=== PATIENT | female | born 1940 | race Caucasian/White ===

== ENCOUNTER 2017-01-25 18:36 | Emergency (ER) | payer OTHER ==
[~2017-01-25] VITALS: Ht 167.6 cm; Wt 92.5 kg
[~2017-01-25 18:36] MED LIST: ALBU-136 INH; BENA20TA PO; CLIN300C2 PO; CLON0.1T42 PO; DILT360C36 PO; DOCU-299 PO; GLIP5TAB13 PO; LEVO750T2 PO; OXYC40TE66 PO; PANT40EC PO; PRED20TA5 PO; PRON NEB; QUET200T PO; SACC250C1 PO
[2017-01-25 18:37] VITALS: BP 142/63
[2017-01-25] MEDS ORDERED: NACL 0.9% 500 ML IV ONE (19:20)
[2017-01-25] MEDS ORDERED: HYDROmorphone 1 MG/ML AMP IVP ONE ×3 (19:20→21:55)
[2017-01-25] MEDS ORDERED: ONDANSETRON 4 MG/2 ML VIAL IVP ONE (19:20)
[2017-01-25 20:31] LABS: HEMATOCRIT 36.8 % (36-48); HEMOGLOBIN 11.8 g/dL (12.0-16.0); MEAN CORPUSCULAR HEMOGLOBIN 30 pg (27-31); MEAN CORPUSCULAR HGB CONC 32 g/dL (33-37); MEAN CORPUSCULAR VOLUME 93 fL (80-94); PLATELET COUNT (AUTO) 171 K/uL (140-450); RED BLOOD CELL COUNT(AUTO) 3.96 MIL/uL (4.20-5.40); RED CELL DISTRIBUTION WIDTH 13.7 % (11.6-13.7); WHITE BLOOD COUNT (AUTO) 8.1 K/uL (4.8-10.8)
[2017-01-25 20:44] LABS: ANION GAP 12.3 (8-16); CARBON DIOXIDE 31.6 mmol/L (21-32); CHLORIDE 104 mmol/L (98-107); CREATININE 2.1 mg/dL (0.6-1.3); GLUCOSE 162 mg/dL (74-106); POTASSIUM 3.9 mmol/L (3.5-5.1); SODIUM SERUM 144 mmol/L (136-145); UREA NITROGEN, BLOOD 22 mg/dL (7-18)
[2017-01-25 20:47] LABS: LYMPHOCYTES % (MANUAL) 26 % (20-46); MONOCYTES % (MANUAL) 9 % (5-12)
[2017-01-25 20:48] LABS: ALBUMIN 3.6 g/dL (3.4-5.0); ASPARTATE AMINOTRANSFERASE 29 U/L (15-37); TOTAL BILIRUBIN 0.3 mg/dL (0.0-1.0)
[2017-01-25] MEDS ORDERED: diphenhydrAMINE 50 MG/ML VIAL IVP ONE (21:55)
[2017-01-25 22:25] LABS: PROTHROMBIN TIME 10.5 secs (10.8-13.4)
[2017-01-25 22:27] LABS: APPEARANCE,URINE HAZY (CLEAR); BILIRUBIN,URINE NEGATIVE (NEGATIVE); BLOOD, URINE NEGATIVE (NEGATIVE); COLOR,URINE YELLOW (YELLOW); LEUKOCYTE ESTERASE ,URINE NEGATIVE (NEGATIVE); NITRITE, URINE NEGATIVE (NEGATIVE); PH,URINE 5.5 (5.0-9.0); UGLUCOSE NEGATIVE (NEGATIVE)
[2017-01-25 22:39] LABS: CALCIUM OXALATE CRYSTALS,UR 0-10 /HPF (None Seen); RBC,URINE 0-5 (RARE) /HPF (0-5); WBC,URINE 0-5 (RARE) /HPF (0-5)
[2017-01-25 23:50] VITALS: BP 135/90
== END 2017-01-25 23:50 | disposition home or self-care (01) ==
LOC: MED 18:36
DX: R10.9 Unspecified abdominal pain (principal); R11.10 Vomiting, unspecified; Z88.2 Allergy status to sulfonamides; J44.9 Chronic obstructive pulmonary disease, unspecified
CPT/HCPCS: 36415; 71010; 74176; 80053; 81001; 83605; 83880; 84484; 85025; 85610; 85730; 87040; 87086; 93005; 96361; 96374; 96375; 96376; 99285; J1170; J1200; J2405; Q0092

== ENCOUNTER 2017-03-19 00:40 | Inpatient (IN) | payer OTHER ==
[~2017-03-19] VITALS: Ht 167.6 cm; Wt 98.9 kg
[2017-03-19 00:40] VITALS: BP 191/96
--- NOTE | 2017-03-19 00:42 | NUR ---
Pt placed in bed 2 by EMS
--- NOTE | 2017-03-19 00:50 | NUR ---
76/F with biba from home with c/o cough, SOB congestion x2 days. Pt on home oxygen. Pt on 4L nasal canula, O2 sat 97% on 4L. AOX4, speaks in clear sentences. Denies N/V/D. Pt asking for pain shot upon arrival. Pt has hx chronic back pain and c/o lower back pain and headache at this time. VSS at this time.
--- NOTE | 2017-03-19 00:51 | NUR ---
Patient being evaluated by Dr. Sellers at bedside.
[2017-03-19] MEDS ORDERED: NACL 0.9% 1,000 ML IV ONE (01:00)
[2017-03-19] MEDS ORDERED: KETOROLAC 30 MG/ML VIAL IVP ONE (01:00)
--- NOTE | 2017-03-19 01:23 | NUR ---
X-Ray at bedside.
[2017-03-19 01:38] LABS: HEMATOCRIT 32.3 % (36-48); HEMOGLOBIN 10.2 g/dL (12.0-16.0); MEAN CORPUSCULAR HEMOGLOBIN 29 pg (27-31); MEAN CORPUSCULAR HGB CONC 32 g/dL (33-37); MEAN CORPUSCULAR VOLUME 90 fL (80-94); PLATELET COUNT (AUTO) 289 K/uL (140-450); RED BLOOD CELL COUNT(AUTO) 3.57 MIL/uL (4.20-5.40); RED CELL DISTRIBUTION WIDTH 13.6 % (11.6-13.7); WHITE BLOOD COUNT (AUTO) 6.6 K/uL (4.8-10.8)
[2017-03-19 01:49] LABS: EOSINOPHILS % (MANUAL) 4 % (0-4); LYMPHOCYTES % (MANUAL) 23 % (20-46); MONOCYTES % (MANUAL) 2 % (5-12)
[2017-03-19] MEDS ORDERED: ALBUTEROL SULFATE/IPRATROPIU 3 ML SOL IH ONE ×2 (01:50→02:30)
[2017-03-19 01:51] LABS: PROTHROMBIN TIME 10.2 secs (10.8-13.4)
--- NOTE | 2017-03-19 01:52 | NUR ---
RT at bedside for breathing treatment.
[2017-03-19 01:54] LABS: APPEARANCE,URINE SL CLOUDY (CLEAR); BILIRUBIN,URINE NEGATIVE (NEGATIVE); BLOOD, URINE 1+ (NEGATIVE); COLOR,URINE YELLOW (YELLOW); LEUKOCYTE ESTERASE ,URINE NEGATIVE (NEGATIVE); NITRITE, URINE NEGATIVE (NEGATIVE); UGLUCOSE NEGATIVE (NEGATIVE)
[2017-03-19 01:56] LABS: ANION GAP 9.9 (8-16); CARBON DIOXIDE 30.8 mmol/L (21-32); CHLORIDE 109 mmol/L (98-107); CREATININE 1.4 mg/dL (0.6-1.3); GLUCOSE 174 mg/dL (74-106); POTASSIUM 3.7 mmol/L (3.5-5.1); SODIUM SERUM 146 mmol/L (136-145); UREA NITROGEN, BLOOD 12 mg/dL (7-18)
[2017-03-19 02:00] LABS: ALBUMIN 3.1 g/dL (3.4-5.0); ASPARTATE AMINOTRANSFERASE 28 U/L (15-37); TOTAL BILIRUBIN 0.2 mg/dL (0.0-1.0)
[2017-03-19] MEDS ORDERED: MAG SULF 2000 MG/WATER PREMIX 50 ML IV ONE (02:00)
[2017-03-19] MEDS ORDERED: methylPREDNISolone SS 125 MG/2 ML VIAL IVP ONE (02:00)
[2017-03-19 02:03] LABS: RBC,URINE 3-10 (FEW) /HPF (0-5); WBC,URINE 0-5 (RARE) /HPF (0-5)
[2017-03-19] MEDS ORDERED: fentaNYL 0.05 MG/ML VIAL IVP ONE (02:30)
[2017-03-19] MEDS ORDERED: HYDROcodone/APAP 7.5/325 MG 1 TAB PO PRN (02:35)
[2017-03-19] MEDS ORDERED: ACETAMINOPHEN 325 MG TAB PO PRN (02:35)
[2017-03-19] MEDS ORDERED: ONDANSETRON 4 MG/2 ML VIAL IVP PRN (02:35)
[2017-03-19] MEDS ORDERED: DEXTROSE 50% 50 ML SYR IVP PRN (02:45)
--- NOTE | 2017-03-19 02:59 | NUR ---
Patient will be admitted to care of Dr. Ren. Admited to TELE. Will go to room 112-B. Belongings list completed. Report to Christina MARTINEZ.
[2017-03-19 03:02] LABS: CHOL/HDL RATIO 3.9 (1-4.5); FREE T4 (FREE THYROXINE) 0.68 ng/dL (0.76-1.46); MAGNESIUM 1.7 mg/dL (1.8-2.4); PHOSPHORUS 3.2 mg/dL (2.5-4.9); THYROID STIMULATING HORMONE 2.94 uIU/mL (0.34-3.74)
[2017-03-19 03:20] VITALS: BP 155/91
--- NOTE | 2017-03-19 03:20 | NUR ---
R ac 22 gauge dislodged and removed. New IV inserted to right wrist 24 gauge.
--- NOTE | 2017-03-19 03:25 | NUR ---
Pt transferred to Tele 112-B via [facility] accompanied by EMT Mini and JUAN Carey with cardiac monitoring. IV fluids transferred infusing to Tele.
[2017-03-19] MEDS ORDERED: HYDROmorphone 1 MG/ML AMP IVP SCH (03:30)
[2017-03-19] MEDS: QUEtiapine FUMARATE 100 MG TAB PO SCH ×3 (03:56→20:39)
[2017-03-19] MEDS ORDERED: LEVOFLOXACIN 750 MG/D5W PREMIX 150 ML IV SCH (04:00)
[2017-03-19] MEDS ORDERED: QUEtiapine FUMARATE 100 MG TAB ONE (04:01)
--- NOTE | 2017-03-19 04:20 | NUR ---
PT ARRIVED ON UNIT, VIA GURNEY, PT STABLE, NO DISTRESS NOTED, IV TO THE R AC 24 G INFUSING WELL, REPORTED HAVING PAIN OF 10/10, DR AC BY BEDSIDE, WILL MEDICATE WHEN MEDICATION ARE DUE, INITIAL ASSESSMENT DONE, ALL SAFETY PRECAUTION MET, CALL LIGHT WITHIN REACH, WILL CONTINUE TO MONITOR.
[2017-03-19] MEDS: cloNIDine 0.1 MG TAB PO SCH ×3 (04:32→14:54)
[2017-03-19] MEDS: oxyCODONE 40 MG TABER PO SCH ×3 (04:32→20:40)
--- NOTE | 2017-03-19 04:32 | NUR ---
DUE MEDICATION GIVEN, PT TOLERATED WELL, RESTING NO DISTRESS NOTED, CALL LIGHT WITHIN REACH, WILL CONTINUE TO MONITOR.
[2017-03-19] MEDS ORDERED: oxyCODONE 40 MG TABER PO SCH (05:00)
[2017-03-19] MEDS ORDERED: oxyCODONE 40 MG TABER PO PRN (05:00)
[2017-03-19] MEDS: ALBUTEROL SULFATE/IPRATROPIU 3 ML SOL IH SCH ×3 (06:40→19:15)
[2017-03-19] MEDS: BLOOD GLUCOSE MONITORING 1 DEV DEV FS SCH ×4 (06:46→20:54)
[2017-03-19] MEDS: INSULIN LISPRO SLIDING SCALE 100 UNITS/ML VIAL SUBQ PRN ×4 (06:50→21:50)
[2017-03-19] MEDS ORDERED: NITROGLYCERIN 0.4 MG TAB SL SCH (07:00)
--- NOTE | 2017-03-19 07:15 | NUR ---
RECEIVED PT REPORT FROM THE PHOTOGRAPHIC PROCESSOR. NO S/S OF DISTRESS NOTED, IV NOTED TO THE LEFT AC, 24 GAUGE, INFUSING WELL, REPORTED HAVING LOW BACK PAIN OF 8/10 WILL MEDICATE. FALL PRECAUTIONS MET, BED LOW, CALL LIGHT WITHIN REACH, WILL CONTINUE TO MONITOR.
--- NOTE | 2017-03-19 07:18 | NUR ---
ENDORSED PT TO DAY SHIFT NURSE, PT RESTING NO DISTRESS NOTED, STABLE.
--- NOTE | 2017-03-19 07:50 | NUR ---
PT DENIED ANY CHEST PAIN SO NITRO WAS NOT GIVEN. PT C/O LOW BACK PAIN AND REQUESTED IV PAIN MEDS. NOTIFIED TO , WILL PUT IN ORDERS.
[2017-03-19 08:00] VITALS: BP 124/67
--- NOTE | 2017-03-19 08:00 | NUR ---
PT IS ON 2L O2 VIA NC, NO SOB NOTED. WILL CONTINUE TO MONITOR.
[2017-03-19] MEDS: DOCUSATE SODIUM 100 MG GELCAP PO SCH ×2 (08:28→20:42)
[2017-03-19] MEDS: LACTOBACILLUS RHAMNOSUS GG 1 EACH CAP PO SCH (08:29)
[2017-03-19] MEDS: ECOTRIN 81 MG TABEC PO SCH (08:29)
[2017-03-19] MEDS: ATORVASTATIN 20 MG TAB PO SCH (08:29)
[2017-03-19] MEDS: PANTOPRAZOLE 40 MG TABEC PO SCH (08:29)
[2017-03-19] MEDS: MAGNESIUM OXIDE 400 MG TAB PO SCH (08:29)
[2017-03-19] MEDS: glipiZIDE 5 MG TAB PO SCH (08:30)
[2017-03-19] MEDS: BENAZEPRIL 20 MG TAB PO SCH (08:30)
--- NOTE | 2017-03-19 08:44 | NUR ---
PATIENT HAS BEEN SCREENED AND CATEGORIZED MODERATE NUTRITION RISK. PATIENT WILL BE SEEN WITHIN 3-5 DAYS OF ADMISSION. 03/21/17-03/23/[address]
[2017-03-19] MEDS ORDERED: DILTIAZEM 30 MG TAB PO SCH ×2 (09:00)
[2017-03-19] MEDS ORDERED: DOCUSATE SODIUM 100 MG GELCAP PO SCH (09:00)
[2017-03-19] MEDS ORDERED: QUEtiapine FUMARATE 100 MG TAB PO SCH (09:00)
[2017-03-19] MEDS: HYDROmorphone 1 MG/ML AMP IVP PRN ×4 (09:09→22:01)
[2017-03-19 09:30] LABS: BASOPHILS # (AUTO) 0.1 K/uL (0.00-0.22); BASOPHILS % (AUTO) 1.4 % (0.0-2.0); EOSINOPHILS # (AUTO) 0.1 K/uL (0-0.4); EOSINOPHILS % (AUTO) 1.1 % (0.0-4.0); HEMATOCRIT 30.9 % (36-48); LYMPHOCYTES # (AUTO) 0.4 K/uL (2.5-16.5); LYMPHOCYTES % (AUTO) 5.4 % (20.5-51.1); MEAN CORPUSCULAR HEMOGLOBIN 29 pg (27-31); MEAN CORPUSCULAR HGB CONC 32 g/dL (33-37); MEAN CORPUSCULAR VOLUME 91 fL (80-94); MONOCYTES # (AUTO) 0.1 K/uL (0.8-1.0); MONOCYTES % (AUTO) 1.8 % (1.7-9.3); NEUTROPHILS # (AUTO) 6.9 K/uL (1.8-7.7); NEUTROPHILS % (AUTO) 90.3 % (42.2-75.2); PLATELET COUNT (AUTO) 293 K/uL (140-450); RED BLOOD CELL COUNT(AUTO) 3.42 MIL/uL (4.20-5.40); RED CELL DISTRIBUTION WIDTH 13.6 % (11.6-13.7); WHITE BLOOD COUNT (AUTO) 7.6 K/uL (4.8-10.8)
[2017-03-19] MEDS ORDERED: methylPREDNISolone SS 80 MG in WATER STERILE 1 ML IV SCH (10:00)
[2017-03-19 10:08] LABS: ANION GAP 16.4 (8-16); CARBON DIOXIDE 26.9 mmol/L (21-32); CHLORIDE 106 mmol/L (98-107); CREATININE 1.7 mg/dL (0.6-1.3); GLUCOSE 301 mg/dL (74-106); POTASSIUM 3.3 mmol/L (3.5-5.1); SODIUM SERUM 146 mmol/L (136-145); UREA NITROGEN, BLOOD 12 mg/dL (7-18)
--- NOTE | 2017-03-19 10:10 | NUR ---
HELPED PT TO GET UP TO USE THE COMMODE, PT URINATED. URINE IS CLEAR, YELLOW, NO FOUL ORDER NOTED. WILL CONTINUE TO MONITOR.
[2017-03-19 10:14] LABS: PHOSPHORUS 2.7 mg/dL (2.5-4.9)
[2017-03-19] MEDS ORDERED: DILTIAZEM 180 MG PO SCH (10:30)
[2017-03-19] MEDS ORDERED: POTASSIUM CHLORIDE 10 MEQ TABER PO SCH (11:00)
[2017-03-19 12:00] VITALS: BP 136/81
--- NOTE | 2017-03-19 13:05 | NUR ---
PT OFF 02 TIMES 40 MINUTES SPO2 ON R/A.95 LEFT PT ON R/A ALSO DR KINCAID AWARE
[2017-03-19] MEDS: NACL 0.45% 1,000 ML IV SCH (14:34)
[2017-03-19] MEDS: methylPREDNISolone SS 125 MG/2 ML VIAL IVP SCH ×2 (14:54→20:39)
--- NOTE | 2017-03-19 16:30 | NUR ---
PT IV ON THE LEFT AC INFILTRATED, IV CATH REMOVED, TIP INTACT, PRESSURE APPLIED.
--- NOTE | 2017-03-19 17:00 | NUR ---
NEW IV STARTED ON THE RIGHT ARM. GAUGE 22, PT TOLERATED FAIR.
[2017-03-19 17:27] VITALS: BP 142/62
--- NOTE | 2017-03-19 18:42 | NUR ---
DR ORTIZ HAS SEEN THE PT. WILL PUT IN ORDERS.
--- NOTE | 2017-03-19 19:27 | NUR ---
ENDORSED PT TO BOOKING MANAGER. REPORT GIVEN AT BEDSIDE. PT IS ASLEEP. PT IS IN STABLE CONDITION AND NO S/S OF ACUTE DISTRESS.
--- NOTE | 2017-03-19 19:28 | NUR ---
RECEIVED BEDSIDE REPORT FORM DAY SHIFT NURSE HARVEY RN, PT RESTING , NO DISTRESS NOTED, NO SOB, ON NC 2LPM, IV TO R FA RUNNING 1/2 NS @80ML/HR, INFUSING WELL, PT STATED HAVING PAIN WHEN MOVING OF 12/11, REPOSITIONED PT, WILL MEDICATE WHEN MEDICATION IS DUE. INITIAL ASSESSMENT DONE, ALL SAFETY PRECAUTION MET. CALL LIGHT WITHIN REACH, WILL CONTINUE TO MONITOR.
[2017-03-19 20:00] VITALS: BP 130/55
--- NOTE | 2017-03-19 20:39 | NUR ---
DUE MEDICATION GIVEN, PT TOLERATED WELL, NO DISTRESS NOTED, CALL LIGHT WITHIN REACH, WILL CONTINUE TO MONITOR.
--- NOTE | 2017-03-19 22:01 | NUR ---
PT C/O OF PAIN IN THE BACK OF 8 PAIN MEDICATION GIVEN, PT TOLERATED WELL, NO DISTRESS NOTED, CALL LIGHT WITHIN REACH, WILL CONTINUE TO MONITOR.
[2017-03-20] VITALS: BP 136/50
--- NOTE | 2017-03-20 | NUR ---
AMBULATE PT TO BED SIDE COMMODE, PT TOLERATED WELL, NO DISTRESS NOTED, NO SOB, CALL LIGHT WITHIN REACH, WILL CONTINUE TO MONITOR.
[2017-03-20] MEDS: NACL 0.45% 1,000 ML IV SCH ×4 (00:25→20:24)
[2017-03-20] MEDS: HYDROmorphone 1 MG/ML AMP IVP PRN ×4 (03:05→20:12)
--- NOTE | 2017-03-20 03:05 | NUR ---
PT C/O PAIN 8/10 ON THE BACK RADIATING TO THE L LEG. PAIN MEDICATION GIVEN, PT RESTING, NO DISTRESS NOTED, CALL LIGHT WITHIN REACH, WILL CONTINUE TO MONITOR.
[2017-03-20 04:00] VITALS: BP 135/64
[2017-03-20] MEDS: oxyCODONE 40 MG TABER PO SCH ×3 (05:01→20:12)
[2017-03-20] MEDS: cloNIDine 0.1 MG TAB PO SCH ×3 (05:02→20:12)
[2017-03-20] MEDS: methylPREDNISolone SS 125 MG/2 ML VIAL IVP SCH (05:04)
--- NOTE | 2017-03-20 05:04 | NUR ---
DUE MEDICATION GIVEN, PT STABLE, NO DISTRESS NOTED, AMBULATE TO COMMODE, TOLERATED WELL, WILL CONTINUE TO MONITOR.
[2017-03-20] MEDS: BLOOD GLUCOSE MONITORING 1 DEV DEV FS SCH ×4 (06:11→20:40)
[2017-03-20] MEDS: INSULIN LISPRO SLIDING SCALE 100 UNITS/ML VIAL SUBQ PRN ×4 (06:13→20:39)
[2017-03-20 06:39] LABS: HEMOGLOBIN 9.9 g/dL (12.0-16.0); MEAN CORPUSCULAR HEMOGLOBIN 29 pg (27-31); MEAN CORPUSCULAR HGB CONC 33 g/dL (33-37); MEAN CORPUSCULAR VOLUME 90 fL (80-94); PLATELET COUNT (AUTO) 334 K/uL (140-450); RED BLOOD CELL COUNT(AUTO) 3.35 MIL/uL (4.20-5.40); RED CELL DISTRIBUTION WIDTH 14.1 % (11.6-13.7); WHITE BLOOD COUNT (AUTO) 17.7 K/uL (4.8-10.8)
[2017-03-20 07:01] LABS: ANION GAP 11.7 (8-16); CARBON DIOXIDE 28.9 mmol/L (21-32); CHLORIDE 104 mmol/L (98-107); CREATININE 1.5 mg/dL (0.6-1.3); GLUCOSE 237 mg/dL (74-106); POTASSIUM 4.6 mmol/L (3.5-5.1); SODIUM SERUM 140 mmol/L (136-145); UREA NITROGEN, BLOOD 21 mg/dL (7-18)
[2017-03-20 07:07] LABS: MAGNESIUM 2.3 mg/dL (1.8-2.4); PHOSPHORUS 2.7 mg/dL (2.5-4.9)
[2017-03-20] MEDS: ALBUTEROL SULFATE/IPRATROPIU 3 ML SOL IH SCH ×3 (07:10→19:54)
--- NOTE | 2017-03-20 07:19 | NUR ---
GAVE BEDSIDE REPORT TO DAY SHIFT NURSE HARVEY RN, ENDORSED PLAN OF CARE, PT STABLE NO DISTRESS NOTED, CALL LIGHT WITHIN REACH.
--- NOTE | 2017-03-20 07:20 | NUR ---
RECEIVED PT REPORT FROM THE AIRPORT SKILLED MAINTENANCE SUPERVISOR. AOX 4, NO S/S OF DISTRESS NOTED, IV NOTED TO THE RIGHT FA 22 GAUGE, INFUSING WELL. PT IS ON 2L O2. INITIAL ASSESSMENT DONE. FALL PRECAUTIONS MET, BED LOW, CALL LIGHT WITHIN REACH, WILL CONTINUE TO MONITOR.
[2017-03-20 08:00] VITALS: BP 149/56
[2017-03-20] MEDS: glipiZIDE 5 MG TAB PO SCH (08:27)
[2017-03-20] MEDS: DOCUSATE SODIUM 100 MG GELCAP PO SCH ×2 (08:27→20:13)
[2017-03-20] MEDS: LACTOBACILLUS RHAMNOSUS GG 1 EACH CAP PO SCH (08:27)
[2017-03-20] MEDS: ECOTRIN 81 MG TABEC PO SCH (08:27)
[2017-03-20] MEDS: MAGNESIUM OXIDE 400 MG TAB PO SCH (08:28)
[2017-03-20] MEDS: QUEtiapine FUMARATE 100 MG TAB PO SCH ×2 (08:28→21:42)
[2017-03-20] MEDS: FERROUS SULFATE 325 MG TABEC PO SCH (08:28)
[2017-03-20] MEDS: BENAZEPRIL 20 MG TAB PO SCH (08:28)
[2017-03-20] MEDS: ASCORBIC ACID 500 MG TAB PO SCH ×2 (08:29→09:00)
[2017-03-20] MEDS: ATORVASTATIN 20 MG TAB PO SCH (08:29)
[2017-03-20] MEDS: PANTOPRAZOLE 40 MG TABEC PO SCH (08:29)
[2017-03-20] MEDS: LEVOFLOXACIN 500 MG/D5W PREMIX 100 ML IV SCH (08:55)
[2017-03-20] MEDS ORDERED: DILTIAZEM 180 MG PO SCH (09:00)
[2017-03-20] MEDS ORDERED: METHOCARBAMOL 500 MG TAB PO SCH (09:25)
[2017-03-20] MEDS ORDERED: methylPREDNISolone SS 40 MG in WATER STERILE 1 ML IV SCH (10:00)
[2017-03-20 12:00] VITALS: BP 125/67
--- NOTE | 2017-03-20 13:00 | NUR ---
PT RECEIVED BREATHING TREATMENT. NO S/S ACUTE DISTRESS NOTED. WILL CONTINUE TO MONITOR.
[2017-03-20 13:30] LABS: LYMPHOCYTES % (MANUAL) 5 % (20-46); MONOCYTES % (MANUAL) 5 % (5-12)
[2017-03-20] MEDS: methylPREDNISolone SS 40 MG/ML VIAL IVP SCH ×2 (13:32→20:13)
--- NOTE | 2017-03-20 15:15 | NUR ---
SPOKE TO PATIENT AT BEDSIDE REGARDING DISCHARGE PLAN. PER PATIENT SHE LIVES ALONE BUT HER CHILDREN STAY THE NIGHT AND HER DAUGHTER IS HER CAREGIVER. STATES SHE HAS A SCOOTER ,FWW AND HAS OXYGEN AT HOME .REFUSING SNF BUT OK WITH HOME HEALTH IF NEEDED. REQUESTING 3-1 COMMODE AND A SHOWER CHAIR.
--- NOTE | 2017-03-20 15:30 | NUR ---
PT RECEIVED SPONGE BATH. PT TOLERATED WELL.
[2017-03-20 16:00] VITALS: BP 139/76
--- NOTE | 2017-03-20 19:20 | NUR ---
ENDORSED PT TO MARSHMALLOW MACHINE WORKER. REPORT GIVEN AT BEDSIDE. PT IS ASLEEP. PT IS IN STABLE CONDITION AND NO S/S OF ACUTE DISTRESS.
--- NOTE | 2017-03-20 19:25 | NUR ---
RECEIVED PT AWAKE, ANXIOUS, REQUESTING FOR BREATHING TX, RT PAGED BY EMILY GLASS RT SANDEEP AT ICU AT THIS TIME, WILL COME IN WHEN SHE'S DONE THERE, PT MADE AWARE, KEEP HOB ELEVATED FOR COMFORT, O2 AT 2L/NC, VITAL SIGNS TAKEN, BP SLIGHTLY ELEVATED, DENIES CHEST PAIN, PLAN OF CARE DISCUSSED, SAFETY MEASURES IN PLACE, CALL LIGHT WITHIN REACH.
[2017-03-20 20:00] VITALS: BP 151/82
--- NOTE | 2017-03-20 20:15 | NUR ---
BLOOD SUGAR CHECKED WITH 288 RESULT, COVERAGE GIVEN, SNACK PROVIDED, DUE MEDS GIVEN, MEDICATED PRN FOR PAIN WITH DILAUDID IVP, ALL NEEDS ATTENDED.
--- NOTE | 2017-03-20 22:40 | NUR ---
ROUNDED ON PT, SEEN SLEEPING, NO SIGNS OF DISTRESS, MONITORED CLOSELY.
[2017-03-21] VITALS: BP 154/58
[2017-03-21] MEDS: HYDROmorphone 1 MG/ML AMP IVP PRN ×6 (00:12→23:58)
--- NOTE | 2017-03-21 00:15 | NUR ---
PT ABLE TO USE BEDSIDE COMMODE INDEPENDENTLY, VOIDED FREELY, PT COMPLAINING OF BACK PAIN, VITAL SIGNS TAKEN, BP SLIGHTLY ELEVATED, DENIES CHEST PAIN AND NO SOB NOTED, MEDICATED PRN FOR BACK PAIN WITH DILAUDID IVP, CONTINUE TO MONITOR CLOSELY.
[2017-03-21] MEDS: NACL 0.45% 1,000 ML IV SCH ×2 (01:25→15:49)
--- NOTE | 2017-03-21 03:07 | NUR ---
PT ASSISTED TO BEDSIDE COMMODE, VOIDED FREELY WITH 400ML YELLOW URINE, ASSISTED BACK TO BED, WITH SOB ON EXERTION, CONTINUE ON O2 AT 2L/NC, PUT ON SEMI-FOWLERS POSITION, APPEARS COMFORTABLE, PT WENT BACK TO SLEEP, MONITORED CLOSELY.
[2017-03-21] MEDS: ALBUTEROL SULFATE/IPRATROPIU 3 ML SOL IH SCH ×3 (03:44→19:54)
[2017-03-21 04:00] VITALS: BP 145/72
[2017-03-21] MEDS: oxyCODONE 40 MG TABER PO SCH ×3 (04:46→20:01)
[2017-03-21] MEDS: cloNIDine 0.1 MG TAB PO SCH ×3 (04:46→20:02)
[2017-03-21] MEDS: methylPREDNISolone SS 40 MG/ML VIAL IVP SCH (04:47)
[2017-03-21] MEDS: INSULIN LISPRO SLIDING SCALE 100 UNITS/ML VIAL SUBQ PRN ×4 (06:09→20:25)
--- NOTE | 2017-03-21 06:10 | NUR ---
AM LABS DRAWN, BLOOD SUGAR CHECKED WITH 306 RESULT, COVERAGE GIVEN.
[2017-03-21] MEDS: CLINDAMYCIN 600 MG in DEXTROSE 5% 50 ML IV SCH ×3 (06:35→20:03)
[2017-03-21] MEDS: BLOOD GLUCOSE MONITORING 1 DEV DEV FS SCH ×4 (06:36→21:10)
--- NOTE | 2017-03-21 06:40 | NUR ---
ASSISTED TO BEDSIDE COMMODE, VOIDED FREELY, SLIGHT SOB WITH WHEEZING ON EXERTION, HOB ELEVATED, FEEL BETTER AFTER SEVERAL MINUTES, ASSISTED TO REPOSITIONED TO THE LEFT SIDE, MONITORED CLOSELY.
--- NOTE | 2017-03-21 07:16 | NUR ---
PT SLEEPING, NO SIGNS OF DISTRESS, REPORT GIVEN TO JUAN GOMEZ FOR CONTINUITY OF CARE.
--- NOTE | 2017-03-21 07:17 | NUR ---
REPORT RECEIVED FROM CYLINDER DYER NURSE. PATIENT IN STABLE CONDITION. NO DISTRESS NOTED. RESPIRATIONS EVEN, UNLABORED, ON O2 2L/MIN VIA NC. LUNGS ARE CLEAR ON ALL LOBES. DIMINISHED BREATH SOUNDS. REPORTS DYSPNEA UPON EXERTION. PAIN WITHIN TOLERABLE AT THIS TIME. AAOX4, CALM, COOPERATIVE, ABLE TO AMBULATE WITH ASSIST TO BEDSIDE COMMODE. SKIN COLOR APPROPRIATE TO ETHNICITY, WARM TO TOUCH. SKIN INTACT, HAS SCABS THROUGHOUT BODY, NO OPEN WOUND. ABDOMEN IS SOFT, NON-TENDER. REVIEWED PLAN OF CARE WITH PATIENT. PATIENT VERBALIZED UNDERSTANDING. SAFETY MEASURES IN PLACE, CALL LIGHT WITHIN REACH, FALL PREVENTIONS IN PLACE, BEDSIDE COMMODE NEAR BEDSIDE. WILL CONTINUE TO MONITOR.
[2017-03-21 07:31] LABS: HEMATOCRIT 29.3 % (36-48); HEMOGLOBIN 9.4 g/dL (12.0-16.0); MEAN CORPUSCULAR HEMOGLOBIN 29 pg (27-31); MEAN CORPUSCULAR HGB CONC 32 g/dL (33-37); MEAN CORPUSCULAR VOLUME 90 fL (80-94); PLATELET COUNT (AUTO) 339 K/uL (140-450); RED BLOOD CELL COUNT(AUTO) 3.26 MIL/uL (4.20-5.40); RED CELL DISTRIBUTION WIDTH 14.4 % (11.6-13.7); WHITE BLOOD COUNT (AUTO) 13.7 K/uL (4.8-10.8)
[2017-03-21 08:00] VITALS: BP 155/70
[2017-03-21 08:03] LABS: ANION GAP 12.5 (8-16); CARBON DIOXIDE 26.8 mmol/L (21-32); CHLORIDE 105 mmol/L (98-107); CREATININE 1.5 mg/dL (0.6-1.3); GLUCOSE 287 mg/dL (74-106); POTASSIUM 4.3 mmol/L (3.5-5.1); SODIUM SERUM 140 mmol/L (136-145); UREA NITROGEN, BLOOD 32 mg/dL (7-18)
[2017-03-21 08:06] LABS: LYMPHOCYTES % (MANUAL) 4 % (20-46); MONOCYTES % (MANUAL) 2 % (5-12)
[2017-03-21] MEDS: ALBUTEROL SULFATE/IPRATROPIU 3 ML SOL IH PRN (08:12)
[2017-03-21 08:13] LABS: MAGNESIUM 2.3 mg/dL (1.8-2.4); PHOSPHORUS 3.4 mg/dL (2.5-4.9)
[2017-03-21] MEDS: DOCUSATE SODIUM 100 MG GELCAP PO SCH ×2 (08:30→20:01)
[2017-03-21] MEDS: glipiZIDE 5 MG TAB PO SCH (08:30)
[2017-03-21] MEDS: FERROUS SULFATE 325 MG TABEC PO SCH (08:31)
[2017-03-21] MEDS: BENAZEPRIL 20 MG TAB PO SCH (08:31)
[2017-03-21] MEDS: ECOTRIN 81 MG TABEC PO SCH (08:31)
[2017-03-21] MEDS: LACTOBACILLUS RHAMNOSUS GG 1 EACH CAP PO SCH (08:32)
[2017-03-21] MEDS: MAGNESIUM OXIDE 400 MG TAB PO SCH (08:33)
[2017-03-21] MEDS: QUEtiapine FUMARATE 100 MG TAB PO SCH ×2 (08:33→20:20)
[2017-03-21] MEDS: ATORVASTATIN 20 MG TAB PO SCH (08:33)
[2017-03-21] MEDS: PANTOPRAZOLE 40 MG TABEC PO SCH (08:33)
[2017-03-21] MEDS: LEVOFLOXACIN 500 MG/D5W PREMIX 100 ML IV SCH (08:34)
[2017-03-21] MEDS: ASCORBIC ACID 500 MG TAB PO SCH (08:35)
--- NOTE | 2017-03-21 08:40 | NUR ---
PATIENT SITTING AT BEDSIDE. NO DISTRESS NOTED. COMPLAINTS OF PAIN, WILL MEDICATE WITH DILAUDID. RESPIRATIONS EVEN, UNLABORED ON O2 2L/MIN VIA NC. MEDICATIONS DUE GIVEN. ASSISTED PATIENT IN REPOSITIONING IN BED. SAFETY MEASURES IN PLACE, CALL LIGHT WITHIN REACH, BEDSIDE COMMODE NEAR BED. WILL CONTINUE TO MONITOR.
[2017-03-21] MEDS ORDERED: DILTIAZEM 120 MG CAPER PO SCH (10:20)
--- NOTE | 2017-03-21 11:22 | NUR ---
PATIENT SITTING IN BED COMFORTABLY. NO DISTRESS NOTED. PAIN WITHIN TOLERABLE AT THIS TIME. MEDICATIONS DUE GIVEN. IVF BAG REPLACED PER ORDERS. CONDITION UNCHANGED. SAFETY MEASURES IN PLACE, CALL LIGHT WITHIN REACH. WILL CONTINUE TO MONITOR.
[2017-03-21 12:00] VITALS: BP 159/73
--- NOTE | 2017-03-21 13:15 | NUR ---
PATIENT SITTING IN BED WITH FAMILY MEMBERS AT BEDSIDE. NO DISTRESS NOTED. CONDITION UNCHANGED. PAIN WITHIN TOLERABLE AT THIS TIME. MEDICATIONS DUE GIVEN. PLAN OF CARE REVIEWED WITH PATIENT'S FAMILY MEMBER PER PATIENT ALLOWED. HELPED PATIENT REPOSITION IN BED TO A MORE COMFORTABLE POSITION. CONTINUES TO HAVE DYSPNEA UPON EXERTION. SAFETY MEASURES IN PLACE, CALL LIGHT WITHIN REACH. WILL CONTINUE TO MONITOR.
[2017-03-21 16:00] VITALS: BP 144/96
--- NOTE | 2017-03-21 16:30 | NUR ---
PT'S DAUGHTER ANI CALLED AND STATED THAT PT WAS USING [facility] BEFORE. DR. ESPARZA NOTIFIED.
--- NOTE | 2017-03-21 18:10 | NUR ---
PATIENT SITTING IN BED WITH DINNER TRAY IN FRONT. NO DISTRESS NOTED. CONDITION UNCHANGED. PAIN WITHIN TOLERABLE AT THIS TIME. ASSISTED PATIENT TO REPOSITION IN BED PATIENT IS READY TO GO TO SLEEP. SAFETY MEASURES IN PLACE CALL LIGHT WITHIN REACH. WILL CONTINUE TO MONITOR.
--- NOTE | 2017-03-21 19:20 | NUR ---
GAVE REPORT TO ELECTRIC MULE OPERATOR NURSE FOR CONTINUITY OF CARE. PATIENT IN STABLE CONDITION.
--- NOTE | 2017-03-21 19:22 | NUR ---
RECEIVED PT AWAKE, AAOX4, ON SEMI-FOWLERS POSITION, NO SIGNS OF RESPIRATORY DISTRESS, VITAL SIGNS STABLE, ON O2 AT 2L/NC, IVF INFUSING WELL, PT ASKING FOR HER NEXT PAIN MEDICATION, MADE AWARE OF NEXT DUE TIME, PLAN OF CARE DISCUSS, SAFETY MEASURES IN PLACE, CALL LIGHT WITHIN REACH.
--- NOTE | 2017-03-21 19:50 | NUR ---
PT ASSISTED TO BEDSIDE COMMODE, VOIDED FREELY, SOB WITH WHEEZING ON EXERTION, PUT HOB ON HIGH FOWLERS POSITION, PAGED RT FOR BREATHING TX, MAINTAIN ON O2 AT 2L/NC, MONITORED CLOSELY.
[2017-03-21 20:00] VITALS: BP 125/58
--- NOTE | 2017-03-21 20:15 | NUR ---
BLOOD SUGAR CHECKED WITH 184 RESULT, COVERAGE GIVEN, SNACK PROVIDED, DUE MEDS GIVEN, MEDICATED PRN FOR PAIN, ASSIST IN REPOSITIONING FOR COMFORT, MONITORED CLOSELY.
--- NOTE | 2017-03-21 21:30 | NUR ---
REPORT GIVEN TO NUBIA MARTINEZ FOR CONTINUITY OF CARE.
[2017-03-22 00:17] VITALS: BP 134/81
[2017-03-22] MEDS: ALBUTEROL SULFATE/IPRATROPIU 3 ML SOL IH PRN (00:35)
[2017-03-22] MEDS: NACL 0.45% 1,000 ML IV SCH ×2 (02:25→14:55)
[2017-03-22 04:00] VITALS: BP 132/77
[2017-03-22] MEDS: HYDROmorphone 1 MG/ML AMP IVP PRN ×3 (05:38→14:59)
[2017-03-22] MEDS: oxyCODONE 40 MG TABER PO SCH ×3 (05:39→20:50)
[2017-03-22] MEDS: cloNIDine 0.1 MG TAB PO SCH ×3 (05:39→21:06)
[2017-03-22] MEDS: CLINDAMYCIN 600 MG in DEXTROSE 5% 50 ML IV SCH ×3 (05:40→20:52)
[2017-03-22] MEDS: ALBUTEROL SULFATE/IPRATROPIU 3 ML SOL IH SCH ×3 (07:00→19:52)
--- NOTE | 2017-03-22 07:20 | NUR ---
RECEIVED REPORT FROM CEMENT CRUSHER OPERATOR RN. PATIENT IS AAOX3, ON NASAL CANNULA AT 2LPM. BILATERAL WHEEZING HEARD UPON AUSCULTATION, NO SIGNS AND SYMPTOMS OF ACUTE RESPIRATORY DISTRESS NOTED AT THIS TIME. PATIENT HAS NORMAL SALINE INFUSING AT 80ML/HR TO THE RIGHT THUMB 24G. SITE IS CLEAN, DRY, PATENT AND INTACT. DISCUSSED PLAN OF CARE WITH PATIENT, SHE VERBALIZED UNDERSTANDING. BED IN LOWEST POSITION, CALL LIGHT PLACED WITHIN REACH, SIDERAILS UP X2. WILL CONTINUE TO MONITOR.
[2017-03-22] MEDS: INSULIN LISPRO SLIDING SCALE 100 UNITS/ML VIAL SUBQ PRN ×2 (07:26→11:45)
[2017-03-22] MEDS: BLOOD GLUCOSE MONITORING 1 DEV DEV FS SCH ×4 (07:26→20:48)
[2017-03-22 08:00] VITALS: BP 129/78
[2017-03-22 08:01] LABS: HEMATOCRIT 30.5 % (36-48); HEMOGLOBIN 9.9 g/dL (12.0-16.0); MEAN CORPUSCULAR HEMOGLOBIN 29 pg (27-31); MEAN CORPUSCULAR HGB CONC 32 g/dL (33-37); MEAN CORPUSCULAR VOLUME 90 fL (80-94); PLATELET COUNT (AUTO) 214 K/uL (140-450); RED CELL DISTRIBUTION WIDTH 14.6 % (11.6-13.7); WHITE BLOOD COUNT (AUTO) 13.2 K/uL (4.8-10.8)
[2017-03-22 08:11] LABS: ANION GAP 14.4 (8-16); CARBON DIOXIDE 24.7 mmol/L (21-32); CHLORIDE 105 mmol/L (98-107); CREATININE 1.3 mg/dL (0.6-1.3); GLUCOSE 166 mg/dL (74-106); POTASSIUM 4.1 mmol/L (3.5-5.1); SODIUM SERUM 140 mmol/L (136-145); UREA NITROGEN, BLOOD 32 mg/dL (7-18)
[2017-03-22 08:22] LABS: LYMPHOCYTES % (MANUAL) 15 % (20-46); MONOCYTES % (MANUAL) 4 % (5-12)
[2017-03-22] MEDS: glipiZIDE 5 MG TAB PO SCH (09:41)
[2017-03-22] MEDS: FERROUS SULFATE 325 MG TABEC PO SCH (09:41)
[2017-03-22] MEDS: DOCUSATE SODIUM 100 MG GELCAP PO SCH ×2 (10:27→20:49)
[2017-03-22] MEDS: MAGNESIUM OXIDE 400 MG TAB PO SCH (10:28)
[2017-03-22] MEDS: BENAZEPRIL 20 MG TAB PO SCH (10:28)
[2017-03-22] MEDS: ATORVASTATIN 20 MG TAB PO SCH (10:29)
[2017-03-22] MEDS: QUEtiapine FUMARATE 100 MG TAB PO SCH ×2 (10:29→20:52)
[2017-03-22] MEDS: ASCORBIC ACID 500 MG TAB PO SCH (10:29)
[2017-03-22] MEDS: DILTIAZEM 120 MG CAPER PO SCH (10:29)
[2017-03-22] MEDS: LEVOFLOXACIN 500 MG/D5W PREMIX 100 ML IV SCH (10:30)
[2017-03-22] MEDS: PANTOPRAZOLE 40 MG TABEC PO SCH (10:30)
[2017-03-22] MEDS: ECOTRIN 81 MG TABEC PO SCH (10:30)
[2017-03-22] MEDS: LACTOBACILLUS RHAMNOSUS GG 1 EACH CAP PO SCH (10:30)
[2017-03-22 12:00] VITALS: BP 148/59
[2017-03-22 16:00] VITALS: BP 114/62
--- NOTE | 2017-03-22 19:20 | NUR ---
RECEIVED REPORT FROM AM NURSE. PATIENT IS AAOX4, ON O2 2L VIA NC. PT WAS ASSISTED TO BEDSIDE COMMODE, AND WHEN GETTING BACK IN BED SHE BEGAN TO COMPLAIN OF DIFFICULTY BREATHING, RESPIRATORY THERAPIST WAS CALLED IMMEDIATELY TO COME ASSESS PT AND GIVE BREATHING TREATMENT. SKIN COLOR IS APPROPRIATE TO ETHNICITY, WITH SCABS TO BUE/RLE. SKIN TEMP WARM TO TOUCH. IV ACCESS IS INTACT TO THE RIGHT THUMB, PATENT, AND ASYMPTOMATIC. PLAN OF CARE DISCUSSED, PT VERBALIZED UNDERSTANDING. BED IN LOW POSITION, BILATERAL HALF SIDE RAILS UP, CALL LIGHT WITHIN REACH, WILL CONTINUE TO MONITOR.
[2017-03-22 20:00] VITALS: BP 105/52
[2017-03-22] MEDS ORDERED: CLINDAMYCIN 600 MG/4 ML VIAL ONE (20:46)
[2017-03-23] VITALS: BP 129/62
[2017-03-23] MEDS: NACL 0.45% 1,000 ML IV SCH ×2 (00:23→15:55)
--- NOTE | 2017-03-23 02:23 | NUR ---
PT IS SLEEPING, AROUSABLE TO VOICE. NO SIGNS OF ACUTE DISTRESS NOTED, RESPIRATIONS EVEN AND UNLABORED. ON O2 2L VIA NC. BED IN LOW POSITION, BILATERAL HALF SIDE RAILS UP, CALL LIGHT WITHIN REACH, WILL CONTINUE TO MONITOR.
[2017-03-23 04:00] VITALS: BP 137/70
[2017-03-23] MEDS: oxyCODONE 40 MG TABER PO SCH ×3 (05:43→20:46)
[2017-03-23] MEDS: cloNIDine 0.1 MG TAB PO SCH ×3 (05:43→20:46)
[2017-03-23] MEDS: CLINDAMYCIN 600 MG in DEXTROSE 5% 50 ML IV SCH ×3 (05:43→20:46)
[2017-03-23] MEDS: BLOOD GLUCOSE MONITORING 1 DEV DEV FS SCH ×4 (06:59→20:43)
[2017-03-23] MEDS: ALBUTEROL SULFATE/IPRATROPIU 3 ML SOL IH SCH ×4 (07:25→19:17)
--- NOTE | 2017-03-23 07:30 | NUR ---
RECEIVED REPORT FROM SKIVER HAND RN. PATIENT IS AAOX3, ON NASAL CANNULA AT 2LPM. BILATERAL WHEEZING HEARD UPON AUSCULTATION, NO SIGNS AND SYMPTOMS OF ACUTE RESPIRATORY DISTRESS NOTED AT THIS TIME. PATIENT HAS NORMAL SALINE INFUSING AT 80ML/HR TO THE RIGHT THUMB 24G. SITE IS CLEAN, DRY, PATENT AND INTACT. DISCUSSED PLAN OF CARE WITH PATIENT, SHE VERBALIZED UNDERSTANDING. BED IN LOWEST POSITION, CALL LIGHT PLACED WITHIN REACH, SIDERAILS UP X2. WILL CONTINUE TO MONITOR.
--- NOTE | 2017-03-23 07:30 | NUR ---
ENDORSED PT TO AM NURSE FOR CONTINUITY OF CARE. PT IS IN STABLE CONDITION.
--- NOTE | 2017-03-23 07:31 | NUR ---
PATIENT ASSISTED TO BEDSIDE COMMODE. NO SIGNS AND SYMPTOMS OF DISTRESS NOTED AT THIS TIME.
[2017-03-23 08:00] VITALS: BP 120/68
[2017-03-23] MEDS: FERROUS SULFATE 325 MG TABEC PO SCH (08:24)
[2017-03-23] MEDS: glipiZIDE 5 MG TAB PO SCH (08:24)
[2017-03-23] MEDS: ASCORBIC ACID 500 MG TAB PO SCH (08:24)
[2017-03-23] MEDS: ATORVASTATIN 20 MG TAB PO SCH (08:25)
[2017-03-23] MEDS: MAGNESIUM OXIDE 400 MG TAB PO SCH (08:25)
[2017-03-23] MEDS: QUEtiapine FUMARATE 100 MG TAB PO SCH ×2 (08:25→20:47)
[2017-03-23] MEDS: PANTOPRAZOLE 40 MG TABEC PO SCH (08:25)
[2017-03-23] MEDS: DOCUSATE SODIUM 100 MG GELCAP PO SCH ×2 (08:25→20:45)
[2017-03-23] MEDS: BENAZEPRIL 20 MG TAB PO SCH (08:26)
[2017-03-23] MEDS: DILTIAZEM 120 MG CAPER PO SCH (08:26)
[2017-03-23] MEDS: LACTOBACILLUS RHAMNOSUS GG 1 EACH CAP PO SCH (08:26)
[2017-03-23] MEDS: ECOTRIN 81 MG TABEC PO SCH (08:26)
[2017-03-23] MEDS: LEVOFLOXACIN 500 MG/D5W PREMIX 100 ML IV SCH (08:26)
--- NOTE | 2017-03-23 09:00 | NUR ---
PATIENT TOOK AM MEDICATIONS. WENT BACK TO SLEEP AFTER TAKING THEM.
[2017-03-23 09:01] LABS: BASOPHILS # (AUTO) 0.4 K/uL (0.00-0.22); BASOPHILS % (AUTO) 3.8 % (0.0-2.0); EOSINOPHILS # (AUTO) 0.2 K/uL (0-0.4); EOSINOPHILS % (AUTO) 1.7 % (0.0-4.0); HEMATOCRIT 31.3 % (36-48); HEMOGLOBIN 10.1 g/dL (12.0-16.0); LYMPHOCYTES # (AUTO) 3.6 K/uL (2.5-16.5); LYMPHOCYTES % (AUTO) 35.8 % (20.5-51.1); MEAN CORPUSCULAR HEMOGLOBIN 29 pg (27-31); MEAN CORPUSCULAR HGB CONC 32 g/dL (33-37); MEAN CORPUSCULAR VOLUME 89 fL (80-94); MONOCYTES # (AUTO) 0.6 K/uL (0.8-1.0); MONOCYTES % (AUTO) 5.6 % (1.7-9.3); NEUTROPHILS # (AUTO) 5.1 K/uL (1.8-7.7); NEUTROPHILS % (AUTO) 53.1 % (42.2-75.2); PLATELET COUNT (AUTO) 326 K/uL (140-450); RED BLOOD CELL COUNT(AUTO) 3.51 MIL/uL (4.20-5.40); RED CELL DISTRIBUTION WIDTH 14.1 % (11.6-13.7); WHITE BLOOD COUNT (AUTO) 9.9 K/uL (4.8-10.8)
[2017-03-23 09:17] LABS: ANION GAP 10.7 (8-16); CARBON DIOXIDE 27.4 mmol/L (21-32); CHLORIDE 106 mmol/L (98-107); CREATININE 1.5 mg/dL (0.6-1.3); GLUCOSE 117 mg/dL (74-106); POTASSIUM 4.1 mmol/L (3.5-5.1); SODIUM SERUM 140 mmol/L (136-145); UREA NITROGEN, BLOOD 26 mg/dL (7-18)
--- NOTE | 2017-03-23 10:13 | NUR ---
CM NOTE CLINICAL INFORMATION FAXED TO [facility] / FAX# [phone], ATTN: LEONCIO #[phone] Addendum: 03/23/17 at 1054 by Marshal Randhawa RN PARAG FANG, WAS PREVIOUSLY UNDER THE CARE OF [facility] IN THE [facility] [employer] [place]. FAXED TO [facility] [employer] / FAX# [phone], ATTN: BLANCA #[phone]
--- NOTE | 2017-03-23 11:15 | NUR ---
PATIENT SLEEPING IN BED. BLOOD SUGAR AT 96, NO INSULIN COVERAGE NEEDED AT THIS TIME. PATIENT HAS NO SIGNS AND SYMPTOMS OF DISTRESS NOTED AT THIS TIME.
[2017-03-23 12:00] VITALS: BP 111/67
--- NOTE | 2017-03-23 14:05 | NUR ---
DAUGHTER ANI AT THE BEDSIDE REQUESTING THAT PATIENT GET HER PAIN MEDICATION. IV IS INFILTRATED, WILL CALL ICU NURSE TO HELP INSERT AN IV DUE TO PATIENT BEING HARD TO STICK, AND HER REQUESTING SOMEONE WHO HAS BETTER EXPERIENCE.
--- NOTE | 2017-03-23 14:10 | NUR ---
DAUGHTER ANI REQUESTING THAT PATIENT RECEIVE A BREATHING TREATMENT. RT NOTIFIED.
--- NOTE | 2017-03-23 15:25 | NUR ---
03/23/17 RD INITIAL ASSESSMENT COMPLETED PLEASE REFER TO NUTRITION ASSESSMENT UNDER CARE ACTIVITY FOR ESTIMATED NUTRITIONAL NEEDS. 1. CONTINUE CCHO 60 GM DIET TOLERATED, PER MD 2. RD PROVIDED PT WITH DM DIET EDUCATION 3. RD TO FOLLOW-UP 5-7 DAYS, LOW RISK NICHOLE DEWITT RD
[2017-03-23 16:00] VITALS: BP 127/65
[2017-03-23] MEDS: HYDROmorphone 1 MG/ML AMP IVP PRN (16:24)
--- NOTE | 2017-03-23 17:20 | NUR ---
P.T. NOTES QUINTONRN CALLED DEPT INQUIRING ABOUT P.T. BECAUSE DAUGHTER AND CG ANI, WAS COMPLAINING SHE WAS NOT SEEN TODAY. P.T. EVAL CHART REVIEWED AND SPOKE WITH PRIMARY PT WHO DID EVALUATION. THIS P.T. SPOKE WITH DAUGHTER AT BEDSIDE, EXPLAINED P.T. EVAL TODAY, THEN DAUGHTER SAID "I AM NOT QUESTIONING ABOUT TODAY, I KNOW SHE WAS SEEN. THE DR WAS JUST HERE AND HE SAID WHY ONLY TODAY WHEN HE ORDERED FOR P.T. SINCE PATIENT WAS HERE (03/19/17), HE SAID HE WILL CALL YOUR DEP'T TO COMPLAIN." I REVIEWED THE CHART, P.T. EVAL ORDER PLACED AT 1600 ON 03/21/17Thursday, DEP'T CLOSED ON SUNDAYS, HENCE PATIENT WAS SEEN FIRST THING TODAY 03/23/17, PER CHART DOCUMENTED. THIS WAS EXPLAINED BOTH TO DR. HILLMAN AND THE DAUGHTER, ANI WHO HAD NO FURTHER COMPLAINTS AND WAS IN AGREEMENT WITH THE RATIONALE. THIS P.T. ASSURED PT WILL BE SEEN PER FREQUENCY SET AND WILL BE SEEN TOMORROW. NURSE AWARE. VIRGINIAE
--- NOTE | 2017-03-23 17:41 | NUR ---
HYPOID GEAR TESTER NOTE [id number] Bedside swallow evaluation completed following clearance by JUAN Lisa. Pt caregiver present for evaluation. Please refer to evaluation for full report. Recommend: -Mechanical soft-chopped and thin liquids for all intake. Broth/gravy on the side for each meal -Upright at 90 during and 20 min after PO -Tray set up assistance as needed -Slow rate -Alternate bites/sips -Stop if pulmonary distress noted. PVE w/JUAN Lisa and pt caregiver re: results and recommendations. ST f/u not indicated [id number]: NANDINI [id number]: NANDINI [id number]: CJ Swallow NOMS 4
--- NOTE | 2017-03-23 19:17 | NUR ---
ENDORSED PATIENT TO PROFESSIONAL ORGANIZER RN FOR CONTINUITY OF CARE. PATIENT IN STABLE CONDITION.
--- NOTE | 2017-03-23 19:20 | NUR ---
RECEIVED REPORT FROM AM NURSE. PT RESTING IN BED, AOX4, AMBULATORY WITH WALKER WITH GENERALIZED WEAKNESS, USES BEDSIDE COMMODE, ANXIOUS, ABLE TO VERBALIZE NEEDS. CLASS A REGIONAL DRIVERS IN PLACE. SPO2 92% WITH O2 2L NC, RR 20 EVEN AND UNLABORED AT BASELINE, RESPIRATORY WHEEZES NOTED, INTERMITTENT NONPRODUCTIVE COUGH NOTED. PT C/O BACK PAIN, WILL MEDICATE ORDERED. MULTIPLE DRY SCABS NOTED ON BLE, RUE. SCDs IN PLACE. IV ACCESS ASYMPTOMATIC, PATENT AND INTACT. IVF INFUSING WELL. DISCUSSED AND REVIEWED PLAN OF CARE WITH PT. PT VERBALIZED UNDERSTANDING. ASSISTED PT TO COMMODE, PT ABLE TO TOLERATE WITH 1 PERSON MODERATE ASSIST. ASSISTED PT BACK TO BED. ALL NEEDS MET. SAFETY MEASURES ENSURED. CALL LIGHT WITHIN REACH. WILL CONTINUE TO MONITOR.
[2017-03-23 20:00] VITALS: BP 130/60
[2017-03-23] MEDS: INSULIN LISPRO SLIDING SCALE 100 UNITS/ML VIAL SUBQ PRN (20:44)
--- NOTE | 2017-03-23 20:57 | NUR ---
ASSISTED PT TO COMMODE, ABLE TO TOLERATE WITH 1 PERSON MODERATE ASSIST, PT ASSISTED BACK TO BED. INSULIN COVERAGE ADMINISTERED WITH EVENING SNACK AND EDUCATION. ADMINISTERED REMAINING DUE MEDS WITH EDUCATION. PT VERBALIZED UNDERSTANDING, TOLERATED MEDS WELL. ALL NEEDS MET. IVPB INFUSING WELL. SAFETY MEASURES ENSURED. CALL LIGHT WITHIN REACH. WILL CONTINUE TO MONITOR.
--- NOTE | 2017-03-23 23:55 | NUR ---
ASSISTED PT TO COMMODE, ABLE TO TOLERATE WITH 1 PERSON MODERATE ASSIST. PT ASSISTED BACK TO BED. SPO2 93% AT O2 2L NC, RR 22 EVEN AND UNLABORED AT BASELINE. CONDITION STABLE. ALL NEEDS MET. IVF INFUSING WELL. SAFETY MEASURES ENSURED. CALL LIGHT WITHIN REACH. WILL CONTINUE TO MONITOR.
[2017-03-24] VITALS: BP 134/64
[2017-03-24] MEDS: HYDROmorphone 1 MG/ML AMP IVP PRN (00:34)
--- NOTE | 2017-03-24 02:01 | NUR ---
PT SLEEPING COMFORTABLY, NO S/S OF ACUTE DISTRESS. ALL NEEDS MET. IVF INFUSING WELL. SAFETY MEASURES ENSURED. CALL LIGHT WITHIN REACH. WILL CONTINUE TO MONITOR.
[2017-03-24 04:00] VITALS: BP 139/66
[2017-03-24] MEDS: cloNIDine 0.1 MG TAB PO SCH ×3 (04:23→21:44)
[2017-03-24] MEDS: oxyCODONE 40 MG TABER PO SCH ×3 (04:23→21:45)
[2017-03-24] MEDS: CLINDAMYCIN 600 MG in DEXTROSE 5% 50 ML IV SCH ×3 (04:23→21:41)
--- NOTE | 2017-03-24 04:25 | NUR ---
PT RESTING IN BED, SPO2 93% AT O2 2L NC, RR 20 EVEN AND UNLABORED. ADMINISTERED DUE MEDS WITH EDUCATION. PT STATED "OK," TOLERATED MEDS WELL. ALL NEEDS MET. IVPB INFUSING WELL. SAFETY MEASURES ENSURED. CALL LIGHT WITHIN REACH. WILL CONTINUE TO MONITOR.
[2017-03-24] MEDS: BLOOD GLUCOSE MONITORING 1 DEV DEV FS SCH ×4 (06:35→21:40)
--- NOTE | 2017-03-24 06:35 | NUR ---
PT SLEEPING, SPO2 94% AT O2 2L NC, RR 20 EVEN AND UNLABORED. BLOOD SUGAR 124, NO INSULIN COVERAGE NEEDED. ALL NEEDS MET. IVF INFUSING. SAFETY MEASURES ENSURED. CALL LIGHT WITHIN REACH. WILL CONTINUE TO MONITOR.
[2017-03-24 06:55] LABS: BASOPHILS # (AUTO) 0.4 K/uL (0.00-0.22); BASOPHILS % (AUTO) 3.7 % (0.0-2.0); EOSINOPHILS # (AUTO) 0.3 K/uL (0-0.4); EOSINOPHILS % (AUTO) 2.5 % (0.0-4.0); HEMATOCRIT 32.1 % (36-48); HEMOGLOBIN 10.3 g/dL (12.0-16.0); LYMPHOCYTES # (AUTO) 3.2 K/uL (2.5-16.5); LYMPHOCYTES % (AUTO) 29.5 % (20.5-51.1); MEAN CORPUSCULAR HEMOGLOBIN 29 pg (27-31); MEAN CORPUSCULAR HGB CONC 32 g/dL (33-37); MEAN CORPUSCULAR VOLUME 89 fL (80-94); NEUTROPHILS # (AUTO) 5.8 K/uL (1.8-7.7); NEUTROPHILS % (AUTO) 55.3 % (42.2-75.2); PLATELET COUNT (AUTO) 332 K/uL (140-450); RED CELL DISTRIBUTION WIDTH 14.2 % (11.6-13.7); WHITE BLOOD COUNT (AUTO) 10.7 K/uL (4.8-10.8)
[2017-03-24 07:06] LABS: ANION GAP 11.6 (8-16); CARBON DIOXIDE 28.5 mmol/L (21-32); CHLORIDE 105 mmol/L (98-107); CREATININE 1.5 mg/dL (0.6-1.3); GLUCOSE 127 mg/dL (74-106); POTASSIUM 4.1 mmol/L (3.5-5.1); SODIUM SERUM 141 mmol/L (136-145); UREA NITROGEN, BLOOD 22 mg/dL (7-18)
--- NOTE | 2017-03-24 07:10 | NUR ---
ENDORSED PLAN OF CARE TO AM NURSE. CONDITION STABLE.
--- NOTE | 2017-03-24 07:27 | NUR ---
HHN TX NOT GIVEN. PT IS ASLEEP. NO SOB OR DISTRESS NOTED.
--- NOTE | 2017-03-24 07:30 | NUR ---
RECEIVED REPORT FROM NIGHT RN. PT SLEEPING IN BED. NO S/S OF ACUTE DISTRESS. PT DENIES PAIN. IV SITE PATENT AND INTACT. SCABS NOTED TO BLE BUE. PT ON O2 2L NC. PT HAS NONPITTING EDEMA TO BLE. TELE BOX IN PLACE. PLAN OF CARE DISCUSSED WITH PT. PT VERBALIZED UNDERSTANDING. CALL LIGHT WITHIN REACH. SAFETY MEASURES ENSURED. WILL CONTINUE TO MONITOR.
[2017-03-24 07:57] VITALS: BP 124/73
[2017-03-24] MEDS: DOCUSATE SODIUM 100 MG GELCAP PO SCH ×2 (08:45→21:41)
[2017-03-24] MEDS: DILTIAZEM 120 MG CAPER PO SCH (08:46)
[2017-03-24] MEDS: QUEtiapine FUMARATE 100 MG TAB PO SCH ×2 (08:46→21:00)
[2017-03-24] MEDS: ASCORBIC ACID 500 MG TAB PO SCH (08:46)
[2017-03-24] MEDS: MAGNESIUM OXIDE 400 MG TAB PO SCH (08:46)
[2017-03-24] MEDS: ECOTRIN 81 MG TABEC PO SCH (08:46)
[2017-03-24] MEDS: PANTOPRAZOLE 40 MG TABEC PO SCH (08:47)
[2017-03-24] MEDS: BENAZEPRIL 20 MG TAB PO SCH (08:47)
[2017-03-24] MEDS: glipiZIDE 5 MG TAB PO SCH (08:47)
[2017-03-24] MEDS: ATORVASTATIN 20 MG TAB PO SCH (08:47)
[2017-03-24] MEDS: FERROUS SULFATE 325 MG TABEC PO SCH (08:47)
[2017-03-24] MEDS: LACTOBACILLUS RHAMNOSUS GG 1 EACH CAP PO SCH (08:48)
[2017-03-24] MEDS: LEVOFLOXACIN 500 MG/D5W PREMIX 100 ML IV SCH (08:59)
[2017-03-24] MEDS ORDERED: DILTIAZEM 120 MG CAPER PO SCH (09:00)
--- NOTE | 2017-03-24 09:00 | NUR ---
AM MEDS GIVEN WITH EDUCATION. PT VERBALIZED UNDERSTANDING. PT AT BEDSIDE. PT VERY DROWSY. NO S/S OF ACUTE DISTRESS. WILL CONTINUE TO MONITOR.
--- NOTE | 2017-03-24 10:30 | NUR ---
PT RESTING IN BED. NO S/S OF ACUTE DISTRESS. PT DENIES PAIN. PT STATES SHE HAS OXYGEN AT HOME THAT SHE IS ON CONTINUOUSLY. CALL LIGHT WITHIN REACH. SAFETY MEASURES ENSURED. WILL CONTINUE TO MONITOR.
--- NOTE | 2017-03-24 11:44 | NUR ---
LATE ENTRY FOR 03/23/17 1530 MET WITH PT'S DAUGHTER NAHID WHO STATED THAT SHE IS PT'S IHSS WORKER AND PT RECEIVES 268 HRS/MONTH. PT HAS SCOOTER, HHN, O2, FWW AND A WALKER WITH A SEAT AT HOME. DISCUSSED WITH NAHID THAT AT THIS TIME PER THE PHYSICIAN IT WOULD NOT BE SAFE FOR PT TO BE LEFT ALONE FOR ANY PERIOD OF TIME AT HOME. NAHID STATED THAT SHE HAS 5 BROTHERS AND SHE IS ARRANGING A SCHEDULE WITH THEM SO THAT SOMEONE IS WITH PT AT ALL TIMES. NAHID STATED SHE DOES NOT WANT PT TO GO TO SNF SHE WAS IN ONE BEFORE AND HAD A BAD EXPERIENCE. NAHID DID SAY THAT PT HAS BEEN ON HH SERVICES IN THE PAST WITH [facility] AND SHE WOULD LIKE THEM TO RESUME THEIR SERVICES AND HAS REQUESTED NURSING, PHYSICAL THERAPY AND OCCUPATIONAL THERAPY SERVICES. NAHID'S CONTACT PHONE IS [phone].
[2017-03-24] MEDS: INSULIN LISPRO SLIDING SCALE 100 UNITS/ML VIAL SUBQ PRN (12:01)
--- NOTE | 2017-03-24 12:44 | NUR ---
RECEIVED REPORT FROM FRANCISCO MARTINEZ. PT SLEEPING IN BED. NO S/S OF ACUTE DISTRESS. PT DENIES PAIN. IV SITE PATENT AND INTACT. SCABS NOTED TO BLE BUE. PT ON O2 2L NC. CALL LIGHT WITHIN REACH. SAFETY MEASURES ENSURED. WILL CONTINUE TO MONITOR.
--- NOTE | 2017-03-24 12:48 | NUR ---
ENDORSED PLAN OF CARE TO RN. PT REMAINS STABLE.
[2017-03-24] MEDS: ALBUTEROL SULFATE/IPRATROPIU 3 ML SOL IH SCH ×2 (12:55→20:20)
[2017-03-24 16:00] VITALS: BP 128/56
--- NOTE | 2017-03-24 16:21 | NUR ---
SPOKE WITH IVA FROM [facility] [place] PHONE [phone]. SHE SAID THEY WILL TAKE THE PATIENT. ASKED ME TO FAX THE ORDER, H&P, MED LIST AND PT NOTES TO HER AT [phone], WHICH I DID.
--- NOTE | 2017-03-24 17:00 | NUR ---
CHECKED PT VITALS, VITALS ARE WITHIN NORMAL LIMIT. BLOOD GLUCOSE 100. PT SEEMS DROWSY. NOTIFIED DR. CHOUDHARY.
[2017-03-24] MEDS ORDERED: CALCIUM ACETATE 667 MG TAB PO SCH ×2 (18:15→22:15)
[2017-03-24] MEDS ORDERED: ATOR20TA40 PO (18:52)
[2017-03-24] MEDS ORDERED: GLUC-805 FS (18:52)
[2017-03-24] MEDS ORDERED: QUET200T PO (18:52)
[2017-03-24] MEDS ORDERED: LEVO750T2 PO (18:52)
[2017-03-24] MEDS ORDERED: PRED20TA5 PO (18:52)
[2017-03-24] MEDS ORDERED: FERR-18 PO (18:52)
[2017-03-24] MEDS ORDERED: SACC250C1 PO (18:52)
[2017-03-24] MEDS ORDERED: DILT360C36 PO (18:52)
[2017-03-24] MEDS ORDERED: CLIN300C2 PO (18:52)
[2017-03-24] MEDS ORDERED: DOCU-299 PO (18:52)
[2017-03-24] MEDS ORDERED: GLIP5TAB13 PO (18:52)
[2017-03-24] MEDS ORDERED: CLON0.1T42 PO (18:52)
[2017-03-24] MEDS ORDERED: OXYC40TE66 PO (18:52)
[2017-03-24] MEDS ORDERED: ASPI-1173 PO (18:52)
[2017-03-24] MEDS ORDERED: PANT40EC PO (18:52)
[2017-03-24] MEDS ORDERED: PRON NEB (18:52)
[2017-03-24] MEDS ORDERED: VITC500 PO (18:52)
[2017-03-24] MEDS ORDERED: BENA20TA PO (18:52)
--- NOTE | 2017-03-24 19:40 | NUR ---
ENDORSED PLAN OF CARE TO NIGHT RN. PT REMAINS STABLE.
[2017-03-24 21:30] VITALS: BP 129/68
[2017-03-24] MEDS: NACL 0.45% 1,000 ML IV SCH (21:47)
--- NOTE | 2017-03-24 22:50 | NUR ---
ASSISTED UP TO BSC. PT WITH SOME DIFFICULTY DUE TO GEN WEAKNESS. ON O22L/NC. VOIDED WELL. BACK TO BED. POSITIONED FOR COMFORT
[2017-03-25 00:24] VITALS: BP 138/64
--- NOTE | 2017-03-25 01:00 | NUR ---
PT SLEEPING AT THIS TIME. NO S/S OF ANY DISTRESS NOTED. WILL CONTINUE TO MONITOR.
[2017-03-25] MEDS: NACL 0.45% 1,000 ML IV SCH (01:12)
[2017-03-25] MEDS ORDERED: BENZOCAINE/MENTHOL 1 LOZ MM PRN (02:45)
[2017-03-25 04:35] VITALS: BP 128/75
[2017-03-25] MEDS: CLINDAMYCIN 600 MG in DEXTROSE 5% 50 ML IV SCH ×2 (04:44→12:52)
[2017-03-25] MEDS: HYDROmorphone 1 MG/ML AMP IVP PRN (04:45)
[2017-03-25] MEDS: oxyCODONE 40 MG TABER PO SCH ×2 (05:00→12:46)
[2017-03-25] MEDS: cloNIDine 0.1 MG TAB PO SCH ×2 (05:46→12:51)
[2017-03-25] MEDS: BLOOD GLUCOSE MONITORING 1 DEV DEV FS SCH ×2 (06:07→11:59)
--- NOTE | 2017-03-25 06:08 | NUR ---
BLOOD SUGAR THIS AM 124. NO INSULIN NEEDED.
[2017-03-25] MEDS: ALBUTEROL SULFATE/IPRATROPIU 3 ML SOL IH SCH ×2 (06:19→13:10)
--- NOTE | 2017-03-25 07:20 | NUR ---
ENDORSED PT IN STABLE CONDITION TO AM NURSE.
--- NOTE | 2017-03-25 07:21 | NUR ---
RECEIVED REPORT FROM NIGHT NURSE AT PT BEDSIDE. PATIENT SLEEPING, EASILY AWAKENS. ON O2 2L NC. IV SITE NOT PATENT, NO OTHER IV ACCESS. PATIENT MADE AWARE OF PLAN OF CARE REGARDING NEW IV INSERTION, REFUSED AT THIS TIME. PATIENT AWAKE AND ALERT, FOLLOWS COMMANDS. ANXIOUS. CALL LIGHT WITHIN REACH. WILL CONTINUE TO MONITOR.
[2017-03-25 07:31] LABS: HEMATOCRIT 32.5 % (36-48); HEMOGLOBIN 10.5 g/dL (12.0-16.0); MEAN CORPUSCULAR HEMOGLOBIN 29 pg (27-31); MEAN CORPUSCULAR VOLUME 91 fL (80-94); RED BLOOD CELL COUNT(AUTO) 3.58 MIL/uL (4.20-5.40); WHITE BLOOD COUNT (AUTO) 9.9 K/uL (4.8-10.8)
[2017-03-25 07:32] LABS: MEAN CORPUSCULAR HGB CONC 32 g/dL (33-37); PLATELET COUNT (AUTO) 301 K/uL (140-450); RED CELL DISTRIBUTION WIDTH 15.1 % (11.6-13.7)
[2017-03-25 07:36] LABS: ANION GAP 11.1 (8-16); CARBON DIOXIDE 31.2 mmol/L (21-32); CHLORIDE 102 mmol/L (98-107); CREATININE 1.6 mg/dL (0.6-1.3); GLUCOSE 125 mg/dL (74-106); POTASSIUM 4.3 mmol/L (3.5-5.1); SODIUM SERUM 140 mmol/L (136-145); UREA NITROGEN, BLOOD 18 mg/dL (7-18)
[2017-03-25 07:43] LABS: MAGNESIUM 2.1 mg/dL (1.8-2.4)
[2017-03-25] MEDS: MAGNESIUM OXIDE 400 MG TAB PO SCH (09:08)
[2017-03-25] MEDS: ECOTRIN 81 MG TABEC PO SCH (09:09)
[2017-03-25] MEDS: BENAZEPRIL 20 MG TAB PO SCH (09:09)
[2017-03-25] MEDS: glipiZIDE 5 MG TAB PO SCH (09:09)
[2017-03-25] MEDS: FERROUS SULFATE 325 MG TABEC PO SCH (09:09)
[2017-03-25] MEDS: DILTIAZEM 120 MG CAPER PO SCH (09:09)
[2017-03-25] MEDS: ASCORBIC ACID 500 MG TAB PO SCH (09:10)
[2017-03-25] MEDS: LACTOBACILLUS RHAMNOSUS GG 1 EACH CAP PO SCH (09:10)
[2017-03-25] MEDS: QUEtiapine FUMARATE 100 MG TAB PO SCH (09:10)
[2017-03-25] MEDS: ATORVASTATIN 20 MG TAB PO SCH (09:10)
[2017-03-25] MEDS: PANTOPRAZOLE 40 MG TABEC PO SCH (09:10)
--- NOTE | 2017-03-25 09:30 | NUR ---
PATIENT C/O NECK PAIN, MEDICATED ORDERED WITH NORCO. PATIENT RESTING IN BED, NO S/S OF ACUTE DISTRESS.
[2017-03-25] MEDS: DOCUSATE SODIUM 100 MG GELCAP PO SCH (09:33)
[2017-03-25 09:53] LABS: EOSINOPHILS % (MANUAL) 3 % (0-4); LYMPHOCYTES % (MANUAL) 23 % (20-46); MONOCYTES % (MANUAL) 3 % (5-12)
--- NOTE | 2017-03-25 12:27 | NUR ---
SPOKE WITH DR. RANDHAWA. HE SAID THE PATIENT IS BEING DISCHARGED TODAY. I CALL [facility] IN [facility] AND SPOKE WITH CHEMA AND INFORMED HER THAT THE PATIENT IS GOING HOME TODAY. THEY WILL START TOMORROW. PHONE [phone].
--- NOTE | 2017-03-25 12:33 | NUR ---
ASSISTED PT TO BSC. C/O CHRONIC BACK PAIN, WILL MEDICATE WITH SCHEDULED DOSE.
[2017-03-25 12:51] VITALS: BP 119/57
[2017-03-25] MEDS ORDERED: MENTHOL/METHYL 10%-15% 114 GM TUBE TP PRN (13:10)
--- NOTE | 2017-03-25 14:08 | NUR ---
PATIENT SEEN BY DR. RANDHAWA AT BEDSIDE. DISCHARGE TEACHING GIVEN. PATIENT DISCHARGE INSTRUCTIONS GIVEN WITH FOLLOW UP TEACHING. VERBALIZED UNDERSTANDING. DISCHARGE MEDICATION TEACHING GIVEN. SON AT BEDSIDE TO TAKE PATIENT HOME. O2 TANK WITH SON. PATIENT RECEIVED BREATHING TREATMENT AT BEDSIDE. NO ACUTE DISTRESS NOTED. PATIENT WHEELED TO FRONT LOBBY.
== END 2017-03-25 14:00 | disposition home health service (06) | DRG 177 ==
LOC: MED 00:40 → MTU 02:37
PROVIDERS: ADMIT Family Medicine; ATTEND Family Medicine
DX: J69.0 Pneumonitis due to inhalation of food and vomit (principal); N17.0 Acute kidney failure with tubular necrosis; J96.21 Acute and chronic respiratory failure with hypoxia; E44.0 Moderate protein-calorie malnutrition; D68.59 Other primary thrombophilia; E11.22 Type 2 diabetes mellitus with diabetic chronic kidney disease; E11.51 Type 2 diabetes mellitus with diabetic peripheral angiopathy without gangrene; J44.1 Chronic obstructive pulmonary disease with (acute) exacerbation; E87.0 Hyperosmolality and hypernatremia; E11.65 Type 2 diabetes mellitus with hyperglycemia; E83.42 Hypomagnesemia; I16.0 Hypertensive urgency; F41.9 Anxiety disorder, unspecified; E78.2 Mixed hyperlipidemia; F32.9 Major depressive disorder, single episode, unspecified; E87.6 Hypokalemia; E66.9 Obesity, unspecified; G89.4 Chronic pain syndrome; I27.81 Cor pulmonale (chronic); G47.33 Obstructive sleep apnea (adult) (pediatric); N18.9 Chronic kidney disease, unspecified; R31.9 Hematuria, unspecified; I12.9 Hypertensive chronic kidney disease with stage 1 through stage 4 chronic kidney disease, or unspecified chronic kidney disease; D72.828 Other elevated white blood cell count; T38.0X5A Adverse effect of glucocorticoids and synthetic analogues, initial encounter; D53.9 Nutritional anemia, unspecified; Z88.2 Allergy status to sulfonamides; Z99.81 Dependence on supplemental oxygen; Z79.84 Long term (current) use of oral hypoglycemic drugs; Z79.899 Other long term (current) drug therapy; Z98.1 Arthrodesis status; Z87.891 Personal history of nicotine dependence; Z68.34 Body mass index [BMI] 34.0-34.9, adult; Z91.19 Patient's noncompliance with other medical treatment and regimen
CPT/HCPCS: 36415; 71010; 74000; 76770; 80048; 80053; 81001; 82150; 82948; 83036; 83605; 83690; 83735; 83880; 84100; 84439; 84443; 84484; 85025; 85610; 85730; 87040; 87081; 87086; 87804; 92610; 93005; 93925; 93970; 94640; 96361; 96365; 96375; 97110; 97116; 97140; 97530; 97799; 99285; J1170; J1815; J1885; J1956; J2920; J2930; J3010; J3475; J3490; J7030; J7060; J7620; Q0092

== ENCOUNTER 2017-03-31 16:08 | Inpatient (IN) | payer OTHER ==
[~2017-03-31] VITALS: Ht 157.5 cm; Wt 92.1 kg
[~2017-03-31 16:08] MED LIST changes: +ASPI-1173 PO; +ATOR20TA40 PO; +FERR-18 PO; +VITC500 PO
[2017-03-31 16:48] VITALS: BP 134/68
[2017-03-31] MEDS ORDERED: INSULIN HUMAN REGULAR 100 UNITS/ML 10 ML VIAL IVP ONE ×2 (17:10→17:45)
[2017-03-31] MEDS ORDERED: ALBUTEROL SULFATE/IPRATROPIU 3 ML SOL IH ONE ×2 (17:10)
--- NOTE | 2017-03-31 17:28 | NUR ---
76 f bib daughter c/o hyperglycemia today ranges from [phone] at personal accheck; accheck in hexxnt=484; pt also reports sob with dry hacking cough; pt also reports polyuria, polydipsia, polyphagia; pt is aox4; rr are tachpneic and labored; pt able to speak in full setences; pulse ox=96% on 3l nc; er md aware of pt status. pt refused to be change into gown; pt positioned in rney to comfort, bed down; pt on cm and pulse ox; nad; will continue to monitor.
--- NOTE | 2017-03-31 17:28 | NUR ---
76 f bib daughter c/o hyperglycemia today ranges from [phone] at personal accheck; accheck in cvsobx=856; pt also reports sob with dry hacking cough; pt also reports polyuria, polydipsia, polyphagia; pt is aox4; rr are tachpneic and labored; pt able to speak in full setences; pulse ox=96% on 3l nc; er md aware of pt status. pt refused to be change into gown; pt positioned in [facility] to comfort, bed down; pt on cm and pulse ox; nad; will continue to monitor. Addendum: 03/31/17 at 1733 by JOSELIN pt denies any cp at this time
[2017-03-31] MEDS ORDERED: KETOROLAC 30 MG/ML VIAL IVP ONE (17:40)
--- NOTE | 2017-03-31 17:40 | NUR ---
lab by bedside
[2017-03-31] MEDS ORDERED: cefTRIAXone 1,000 MG VIAL ONE (17:56)
[2017-03-31 18:12] LABS: ASPARTATE AMINOTRANSFERASE 11 U/L (15-37); CARBON DIOXIDE 28.6 mmol/L (21-32); CREATININE 1.5 mg/dL (0.6-1.3); GLUCOSE 322 mg/dL (74-106); TOTAL BILIRUBIN 0.2 mg/dL (0.0-1.0); UREA NITROGEN, BLOOD 24 mg/dL (7-18)
[2017-03-31 18:14] LABS: PROTHROMBIN TIME 10.1 secs (10.8-13.4)
[2017-03-31 18:16] LABS: BASOPHILS # (AUTO) 0.7 K/uL (0.00-0.22); EOSINOPHILS # (AUTO) 0.2 K/uL (0-0.4); HEMOGLOBIN 11.4 g/dL (12.0-16.0); LYMPHOCYTES # (AUTO) 1.6 K/uL (2.5-16.5); MEAN CORPUSCULAR HEMOGLOBIN 29 pg (27-31); MEAN CORPUSCULAR HGB CONC 33 g/dL (33-37); MEAN CORPUSCULAR VOLUME 90 fL (80-94); MONOCYTES # (AUTO) 0.2 K/uL (0.8-1.0); NEUTROPHILS # (AUTO) 14.5 K/uL (1.8-7.7); PLATELET COUNT (AUTO) 299 K/uL (140-450); RED BLOOD CELL COUNT(AUTO) 3.88 MIL/uL (4.20-5.40); RED CELL DISTRIBUTION WIDTH 15.2 % (11.6-13.7); WHITE BLOOD COUNT (AUTO) 17.2 K/uL (4.8-10.8)
[2017-03-31 18:20] LABS: ALBUMIN 3.3 g/dL (3.4-5.0); ANION GAP 10.5 (8-16); CHLORIDE 101 mmol/L (98-107); POTASSIUM 4.1 mmol/L (3.5-5.1); SODIUM SERUM 136 mmol/L (136-145)
[2017-03-31] MEDS ORDERED: ACETAMINOPHEN 325 MG TAB PO PRN (18:20)
[2017-03-31] MEDS ORDERED: ONDANSETRON 4 MG/2 ML VIAL IVP PRN (18:20)
--- NOTE | 2017-03-31 18:30 | NUR ---
Patient will be admitted to care of Mikal. Admited to Tele. Will go to room 122B. Belongings list completed. Report to Deandre MARTINEZ.
--- NOTE | 2017-03-31 18:30 | NUR ---
REPORT GIVEN TO PATRICIA MARTINEZ; ENDORSED MAG IVPB WAS NOT ABLE TO BE GIVEN DUE TO IV ABX IVPB INFUSING IN ONLY IV ACCESS
[2017-03-31] MEDS: MAG SULF 2000 MG/WATER PREMIX 50 ML IV ONE ×2 (18:41→19:30)
[2017-03-31 18:50] VITALS: BP 142/61
--- NOTE | 2017-03-31 18:50 | NUR ---
PATIENT ARRIVED ON UNIT VIA GURNEY/BED. IN STABLE CONDITION, NO DISTRESS NOTED. RESPIRATION EVEN, UNLABORED, ON O2 3L/MIN VIA NC. TRANSFERRED PATIENT FROM ER GURNEY/BED TO TELE BED. SITUATED PATIENT TO ROOM AND ORIENTED PATIENT TO ROOM. V/S TAKEN PER PROTOCOL. BEDSIDE COMMODE PLACED NEAR BEDSIDE AND ASSISTED PATIENT TO BEDSIDE COMMODE AND BACK TO BED. AAOX4, CALM, COOPERATIVE, SKIN COLOR APPROPRIATE TO ETHNICITY, WARM TO TOUCH. SKIN IS INTACT. IV SITE IS INTACT, PATENT, AND INFUSING IVF PER ORDERS. ABDOMEN SOFT, NON-DISTENDED. SAFETY MEASURES IN PLACE, CALL LIGHT WITHIN REACH, FALL PREVENTIONS IN PLACE. WILL CONTINUE TO MONITOR.
[2017-03-31 19:00] VITALS: BP 138/71
--- NOTE | 2017-03-31 19:25 | NUR ---
GAVE REPORT TO BRUSHING MACHINE OPERATOR NURSE FOR CONTINUITY OF CARE. PATIENT IN STABLE CONDITION.
--- NOTE | 2017-03-31 19:30 | NUR ---
Admitted from ER, with chief complaint of ELEVATED BLOOD SUGAR, SOB; DX COPD EXACERBATION. PT'S DAUGHTER AND CAREGIVER ANI AT BEDSIDE SPEAKING WITH DR ABBOTT. 76 y/o, Female, ANXIOUS, AOX4, CHAIRFAST, ABLE TO VERBALIZE NEEDS. PT RESTING IN BED, NO S/S OF ACUTE DISTRESS. PT DENIES SOB AT THIS TIME, SPO2 97% AT O2 5L NC, RR 20 EVEN AND UNLABORED. PT C/O CHRONIC BACK PAIN. SEE PAIN ASSESSMENT, WILL MEDICATE ORDERED. TOOL AND MACHINE MAINTAINER IN PLACE. IV ACCESS ASYMPTOMATIC, PATENT AND INTACT. WILL CALL FOR SCDs. DISCUSSED AND REVIEWED PLAN OF CARE WITH PT AND PT'S DAUGHTER WHO VERBALIZED UNDERSTANDING. oriented to call light, bed, phone,television, bathroom, smoking policy, visiting hours, procedures, ID bracelet on. Belongings list checked. ALL NEEDS MET. SAFETY MEASURES ENSURED. CALL LIGHT WITHIN REACH. WILL CONTINUE TO MONITOR.
[2017-03-31] MEDS: QUEtiapine FUMARATE 100 MG TAB PO SCH (20:17)
[2017-03-31] MEDS: DOCUSATE SODIUM 100 MG GELCAP PO SCH (20:17)
[2017-03-31] MEDS: oxyCODONE 40 MG TABER PO SCH (20:17)
[2017-03-31] MEDS: ZOLPIDEM 10 MG TAB PO SCH ×2 (20:18→22:56)
[2017-03-31] MEDS: cloNIDine 0.1 MG TAB PO SCH (20:18)
[2017-03-31] MEDS: NACL 0.9% 1,000 ML IV SCH (20:19)
--- NOTE | 2017-03-31 20:19 | NUR ---
BLOOD SUGAR 112, NO INSULIN COVERAGE NEEDED. PT C/O CHRONIC BACK PAIN, ADMINISTERED DUE MED OXYCODONE PO ORDERED WITH EDUCATION. WILL MONITOR. PT REFUSED DUE MED AMBIEN PO AT THIS TIME. ADMINISTERED REMAINING DUE MEDS WITH EDUCATION, PT VERBALIZED UNDERSTANDING, TOLERATED MEDS WELL. SPO2 98% AT 3L O2 NC, RR 20 EVEN AND UNLABORED. PT TOLERATING WELL, CONDITION STABLE. ALL NEEDS MET. SAFETY MEASURES ENSURED CALL LIGHT WITHIN REACH. WILL CONTINUE TO MONITOR.
[2017-03-31 20:40] LABS: CHOL/HDL RATIO 2.4 (1-4.5); FREE T4 (FREE THYROXINE) 0.81 ng/dL (0.76-1.46); PHOSPHORUS 3.4 mg/dL (2.5-4.9); THYROID STIMULATING HORMONE 1.03 uIU/mL (0.34-3.74)
[2017-03-31] MEDS: HYDROcodone/APAP 7.5/325 MG 1 TAB PO PRN (22:01)
--- NOTE | 2017-03-31 22:01 | NUR ---
PT C/O PERSISTENT CHRONIC BACK PAIN UNRELIEVED BY OXYCODONE PO. PT INSISTING ON GETTING IV PAIN MED, STATING "I NEED A PAIN SHOT, I KNOW MY BODY." DR ABBOTT AT BEDSIDE, PT AGREED TO TAKE NORCO PO PRN. ADMINISTERED NORCO PO PRN ORDERED WITH EDUCATION. PT VERBALIZED UNDERSTANDING, TOLERATED MED WELL, WILL MONITOR PAIN.
--- NOTE | 2017-03-31 22:56 | NUR ---
PT REPORTS NO RELIEF FROM NORCO PO PRN, MADE DR ABBOTT AWARE, NO NEW ORDERS AT THIS TIME. PT C/O INSOMNIA, ADMINISTERED DUE MED AMBIEN PO WITH EDUCATION. PT VERBALIZED UNDERSTANDING, TOLERATED MEDS WELL. ALL NEEDS MET. IVF INFUSING WELL. SAFETY MEASURES ENSURED. CALL LIGHT WITHIN REACH. WILL CONTINUE TO MONITOR.
[2017-04-01] VITALS: BP 117/54
[2017-04-01] MEDS ORDERED: DEXTROSE 50% 50 ML SYR IVP PRN
[2017-04-01] MEDS: HYDROmorphone PFS 2 MG/ML SYR IVP PRN ×2 (00:10→06:37)
--- NOTE | 2017-04-01 00:10 | NUR ---
SPOKE WITH DR ABBOTT REGARDING PT'S UNRELIEVED BACK PAIN, RECEIVED ORDERS FOR DILAUDID 1MG IVP PRN Q6H. ADMINISTERED DILAUDID 1MG IVP PRN ORDERED WITH EDUCATION. PT VERBALIZED UNDERSTANDING, TOLERATED MED WELL. ALL NEEDS MET. IVF INFUSING WELL. SPO2 98% AT O2 2L NC, RR 16 EVEN AND UNLABORED. NO S/S OF ACUTE DISTRESS. SAFETY MEASURES ENSURED. CALL LIGHT WITHIN REACH. WILL CONTINUE TO MONITOR.
[2017-04-01] MEDS ORDERED: methylPREDNISolone SS 125 MG/2 ML VIAL IVP SCH ×2 (00:45→02:00)
[2017-04-01] MEDS ORDERED: ALBUTEROL SULFATE/IPRATROPIU 3 ML SOL IH PRN (00:55)
[2017-04-01] MEDS ORDERED: AZITHROMYCIN 250 MG in DEXTROSE 5% 250 ML IV SCH ×2 (01:00→21:00)
[2017-04-01] MEDS ORDERED: AZITHROMYCIN 500 MG INJ VIAL IV ONE (01:33)
--- NOTE | 2017-04-01 01:33 | NUR ---
PT SLEEPING COMFORTABLY, AROUSABLE TO NAME, ADMINISTERED 125MG SOLUMEDROL IVP ONCE AT THIS TIME ORDERED WITH EDUCATION. ADMINISTERED AZITHROMYCIN 250MG IN 250ML D5W IVPB AT 250ML/HR ORDERED WITH EDUCATION, WITNESSED BY JUAN ROSALES. PT STATED "OK," TOLERATED MEDS WELL.ALL NEEDS MET. IVPB INFUSING WELL. SAFETY MEASURES ENSURED. CALL LIGHT WITHIN REACH. WILL CONTINUE TO MONITOR.
[2017-04-01 04:00] VITALS: BP 137/57
[2017-04-01] MEDS: cloNIDine 0.1 MG TAB PO SCH ×3 (04:10→20:21)
[2017-04-01] MEDS: oxyCODONE 40 MG TABER PO SCH ×3 (04:11→21:00)
--- NOTE | 2017-04-01 04:12 | NUR ---
NOTIFIED BY CREAM SEPARATOR OPERATOR THAT PT WANTED TO HAVE BLOOD SUGAR CHECKED. PT SITTING IN BED, BLOOD SUGAR 170, PT REQUESTED SNACKS. ADMINISTERED DUE MEDS WITH EDUCATION. PT VERBALIZED UNDERSTANDING, TOLERATED MEDS WELL. CONDITION STABLE, SPO2 97% AT O2 2L NC, RR 18 EVEN AND UNLABORED, HR 67. ALL NEEDS MET. IVF INFUSING WELL. SAFETY MEASURES ENSURED. CALL LIGHT WITHIN REACH. WILL CONTINUE TO MONITOR.
[2017-04-01] MEDS ORDERED: methylPREDNISolone SS 40 MG/ML VIAL IVP SCH (05:00)
[2017-04-01 06:03] LABS: BASOPHILS # (AUTO) 0.2 K/uL (0.00-0.22); BASOPHILS % (AUTO) 1.6 % (0.0-2.0); EOSINOPHILS # (AUTO) 0.1 K/uL (0-0.4); EOSINOPHILS % (AUTO) 0.5 % (0.0-4.0); HEMATOCRIT 33.1 % (36-48); LYMPHOCYTES # (AUTO) 1.2 K/uL (2.5-16.5); LYMPHOCYTES % (AUTO) 9.9 % (20.5-51.1); MEAN CORPUSCULAR HEMOGLOBIN 30 pg (27-31); MEAN CORPUSCULAR HGB CONC 33 g/dL (33-37); MEAN CORPUSCULAR VOLUME 89 fL (80-94); MONOCYTES # (AUTO) 0.3 K/uL (0.8-1.0); MONOCYTES % (AUTO) 2.5 % (1.7-9.3); NEUTROPHILS % (AUTO) 85.5 % (42.2-75.2); PLATELET COUNT (AUTO) 289 K/uL (140-450); RED CELL DISTRIBUTION WIDTH 14.7 % (11.6-13.7); WHITE BLOOD COUNT (AUTO) 11.8 K/uL (4.8-10.8)
[2017-04-01 06:20] LABS: MAGNESIUM 2.2 mg/dL (1.8-2.4); PHOSPHORUS 3.3 mg/dL (2.5-4.9)
[2017-04-01 06:24] LABS: ANION GAP 12.1 (8-16); CHLORIDE 102 mmol/L (98-107); CREATININE 1.6 mg/dL (0.6-1.3); GLUCOSE 273 mg/dL (74-106); POTASSIUM 4.1 mmol/L (3.5-5.1); SODIUM SERUM 140 mmol/L (136-145); UREA NITROGEN, BLOOD 27 mg/dL (7-18)
[2017-04-01] MEDS: glipiZIDE 5 MG TAB PO SCH (06:31)
[2017-04-01] MEDS: BLOOD GLUCOSE MONITORING 1 DEV DEV FS SCH ×4 (06:32→20:25)
--- NOTE | 2017-04-01 06:46 | NUR ---
BLOOD GLUCOSE 295, INSULIN COVERAGE ADMINISTERED WITH EDUCATION. ADMINISTERED REMAINING DUE MEDS WITH EDUCATION. PT C/O PAIN. SEE PAIN ASSESSMENT. ADMINISTERED DILAUDID IVP PRN ORDERED WITH EDUCATION. PT VERBALIZED UNDERSTANDING. TOLERATED MEDS WELL. ALL NEEDS MET. IVF INFUSING WELL. SAFETY MEASURES ENSURED. CALL LIGHT WITHIN REACH. WILL CONTINUE TO MONITOR
--- NOTE | 2017-04-01 07:20 | NUR ---
ENDORSED PLAN OF CARE TO AM NURSE. CONDITION STABLE.
--- NOTE | 2017-04-01 07:33 | NUR ---
RECEIVED REPORT FROM DYNAMITE SHOOTER NURSE, PT IS A/OX4, AMBULATES WITH ASSIST, PT USES BEDSIDE COMMODE, PT HAS DRY SCABS TROUGH OUT BILATERAL UPPER AND LOWER EXTREMITIES, IV IS ON THE RIGHT HAND, PATENT, INTACT, FLUSHING WELL, PT IS ON O2 2L NC, NO S/S OF RESPIRATORY DISTRESS OR DISCOMFORT NOTED, DISCUSSED PLAN OF CARE WITH PT, PT VERBALIZED UNDERSTANDING, SAFETY/FALL PRECAUTIONS ARE IN PLACE, CALL LIGHT IS WITHIN REACH, WILL CONTINUE TO MONITOR.
[2017-04-01 08:00] VITALS: BP 156/68
[2017-04-01] MEDS: methylPREDNISolone SS 125 MG/2 ML VIAL IVP SCH ×3 (08:25→20:22)
[2017-04-01] MEDS: FERROUS SULFATE 325 MG TABEC PO SCH (08:25)
[2017-04-01] MEDS: LACTOBACILLUS RHAMNOSUS GG 1 EACH CAP PO SCH (08:25)
--- NOTE | 2017-04-01 08:25 | NUR ---
DUE MEDICATIONS GIVEN, PT TOLERATED WELL, CALL LIGHT WITHIN REACH, WILL CONTINUE TO MONITOR.
[2017-04-01] MEDS: BENAZEPRIL 20 MG TAB PO SCH (08:26)
[2017-04-01] MEDS: QUEtiapine FUMARATE 100 MG TAB PO SCH ×2 (08:26→20:19)
[2017-04-01] MEDS: DILTIAZEM 120 MG CAPER PO SCH (08:26)
[2017-04-01] MEDS: ASCORBIC ACID 500 MG TAB PO SCH (08:27)
[2017-04-01] MEDS: PANTOPRAZOLE 40 MG TABEC PO SCH (08:27)
[2017-04-01] MEDS: DOCUSATE SODIUM 100 MG GELCAP PO SCH ×2 (08:27→20:20)
[2017-04-01] MEDS: ECOTRIN 81 MG TABEC PO SCH (08:27)
[2017-04-01] MEDS: ALBUTEROL SULFATE/IPRATROPIU 3 ML SOL IH SCH ×3 (08:53→19:28)
[2017-04-01] MEDS ORDERED: ATORVASTATIN 20 MG TAB PO SCH (09:00)
[2017-04-01] MEDS ORDERED: PANTOPRAZOLE 40 MG INJ VIAL IVP SCH (09:00)
[2017-04-01] MEDS: HYDROcodone/APAP 7.5/325 MG 1 TAB PO PRN (09:53)
--- NOTE | 2017-04-01 10:02 | NUR ---
PATIENT HAS BEEN SCREENED AND CATEGORIZED HIGH NUTRITION RISK. PATIENT WILL BE SEEN WITHIN 1-2 DAYS OF ADMISSION. 04/01/17-04/02/[address]
[2017-04-01] MEDS ORDERED: KETOROLAC 15 MG/ML VIAL IVP PRN (11:15)
[2017-04-01] MEDS: MORPHINE SULFATE 2 MG/ML SYR IVP PRN ×2 (11:25→20:17)
[2017-04-01 12:00] VITALS: BP 142/54
[2017-04-01] MEDS ORDERED: IBUPROFEN 400 MG TAB PO SCH (12:00)
[2017-04-01] MEDS: INSULIN LISPRO SLIDING SCALE 100 UNITS/ML VIAL SUBQ PRN ×3 (12:11→20:30)
[2017-04-01] MEDS: CYCLOBENZAPRINE 10 MG TAB PO SCH ×2 (12:15→16:31)
--- NOTE | 2017-04-01 12:25 | NUR ---
PT SITTING AT THE EDGE OF THE BED EATING LUNCH AT THIS TIME, CALL LIGHT IS WITHIN REACH.
[2017-04-01] MEDS: NACL 0.9% 1,000 ML IV SCH (14:20)
--- NOTE | 2017-04-01 15:05 | NUR ---
CIRCULATION ANALYST AT PATIENT BEDSIDE AT THIS TIME WORKING WITH PT.
[2017-04-01 16:00] VITALS: BP 97/48
--- NOTE | 2017-04-01 16:31 | NUR ---
PATIENT APPEARS TO BE DROWSY AT THIS TIME. WILL HOLD FLEXERIL AND WILL CONTINUE TO MONITOR.
--- NOTE | 2017-04-01 17:40 | NUR ---
PATIENT IS AWAKE, SITTING IN BED EATING DINNER.
--- NOTE | 2017-04-01 18:49 | NUR ---
PATIENT SITTING IN BED TALKING ON THE PHONE, CALL LIGHT IS WITHIN REACH.
--- NOTE | 2017-04-01 19:01 | NUR ---
ENDORSED PT TO VENEER STOCK LAYER NURSE FOR CONTINUITY OF CARE, PT STABLE AT THIS TIME.
--- NOTE | 2017-04-01 19:10 | NUR ---
RECEIVED REPORT FROM AM NURSE. PT RESTING IN BED, AOX4, ANXIOUS AT TIMES, ABLE TO AMBULATE TO BEDSIDE COMMODE WITH MINIMAL ASSIST, ABLE TO VERBALIZE NEEDS. PT DENIES SOB AT THIS TIME, SPO2 95% AT O2 5L NC, RR 18 EVEN AND UNLABORED. PT C/O BACK PAIN. SEE PAIN ASSESSMENT, WILL MEDICATE ORDERED. AERIAL SURVEY TECHNICIAN IN PLACE. PT REFUSED TO KEEP SCDs ON AT THIS TIME DESPITE EDUCATION. DRY SCABS NOTED ON BUE AND R MIKE CALVERT. IV ACCESS ASYMPTOMATIC, PATENT AND INTACT. DISCUSSED AND REVIEWED PLAN OF CARE WITH PT, PT VERBALIZED UNDERSTANDING. ALL NEEDS MET. SAFETY MEASURES ENSURED. CALL LIGHT WITHIN REACH. WILL CONTINUE TO MONITOR.
[2017-04-01 20:00] VITALS: BP 122/54
[2017-04-01] MEDS: ZOLPIDEM 10 MG TAB PO SCH (20:20)
--- NOTE | 2017-04-01 20:30 | NUR ---
BLOOD SUGAR 375, ADMINISTERED INSULIN COVERAGE WITH EDUCATION. PT C/O BACK PAIN. SEE PAIN ASSESSMENT, ADMINISTERED MORPHINE IVP PRN ORDERED WITH EDUCATION. HELD DUE MED OXYCODONE AT THIS TIME TO MONITOR PT'S PAIN, WILL RECHECK. ADMINISTERED REMAINING DUE MEDS WITH EDUCATION. PT VERBALIZED UNDERSTANDING, TOLERATED MEDS WELL. ALL NEEDS MET. IVPB INFUSING WELL. SAFETY MEASURES ENSURED. CALL LIGHT WITHIN REACH. WILL CONTINUE TO MONITOR.
[2017-04-02] VITALS: BP 127/58
[2017-04-02] MEDS: INSULIN LISPRO SLIDING SCALE 100 UNITS/ML VIAL SUBQ PRN ×5 (00:16→20:43)
[2017-04-02] MEDS: MORPHINE SULFATE 2 MG/ML SYR IVP PRN ×5 (00:17→20:13)
--- NOTE | 2017-04-02 00:20 | NUR ---
PT ASKED TO HAVE BLOOD SUGAR CHECKED, 383. CALLED DR ABBOTT, MADE MD AWARE, RECEIVED ORDERS TO ADMINISTER HUMALOG INSULIN COVERAGE AT THIS TIME. BLOOD GLUCOSE 383, ADMINISTERED 10 UNITS INSULIN HUMALOG COVERAGE WITH EDUCATION, PT VERBALIZED UNDERSTANDING, TOLERATED WELL. PT C/O BACK PAIN. SEE PAIN ASSESSMENT. ADMINISTERED MORPHINE IVP PRN ORDERED. ALL NEEDS MET. IVF INFUSING WELL. SAFETY MEASURES ENSURED. CALL LIGHT WITHIN REACH. WILL CONTINUE TO MONITOR.
[2017-04-02 04:00] VITALS: BP 143/62
[2017-04-02] MEDS: cloNIDine 0.1 MG TAB PO SCH ×3 (04:19→20:45)
--- NOTE | 2017-04-02 04:19 | NUR ---
PT C/O BACK PAIN. SEE PAIN ASSESSMENT. ADMINISTERED MORPHINE IVP PRN ORDERED WITH EDUCATION. HELD DUE MED OXYCODONE PO AT THIS TIME DUE TO PT ALREADY RECEIVING MORPHINE IVP, WILL MONITOR PT'S PAIN. ADMINISTERED REMAINING DUE MED CLONIDINE PO ORDERED WITH EDUCATION. PT VERBALIZED UNDERSTANDING. ASSISTED PT TO BEDSIDE COMMODE AND BACK TO BED, TURNED AND REPOSITIONED. ALL NEEDS MET. IVF INFUSING WELL. SAFETY MEASURES ENSURED. CALL LIGHT WITHIN REACH. WILL CONTINUE TO MONITOR.
[2017-04-02] MEDS: oxyCODONE 40 MG TABER PO SCH ×3 (05:00→20:26)
[2017-04-02] MEDS: glipiZIDE 5 MG TAB PO SCH (06:24)
[2017-04-02] MEDS: BLOOD GLUCOSE MONITORING 1 DEV DEV FS SCH ×4 (06:25→20:44)
--- NOTE | 2017-04-02 06:28 | NUR ---
BLOOD GLUCOSE 226, INSULIN COVERAGE ADMINISTERED. ADMINISTERED REMAINING DUE MEDS WITH EDUCATION. PT VERBALIZED UNDERSTANDING, TOLERATED MEDS WELL. ALL NEEDS MET. IVF INFUSING WELL. SAFETY MEASURES ENSURED. CALL LIGHT WITHIN REACH. WILL CONTINUE TO MONITOR.
[2017-04-02 06:49] LABS: HEMATOCRIT 33.1 % (36-48); HEMOGLOBIN 10.7 g/dL (12.0-16.0); MEAN CORPUSCULAR HEMOGLOBIN 29 pg (27-31); MEAN CORPUSCULAR HGB CONC 32 g/dL (33-37); MEAN CORPUSCULAR VOLUME 91 fL (80-94); PLATELET COUNT (AUTO) 315 K/uL (140-450); RED BLOOD CELL COUNT(AUTO) 3.66 MIL/uL (4.20-5.40); WHITE BLOOD COUNT (AUTO) 19.6 K/uL (4.8-10.8)
[2017-04-02 06:52] LABS: ANION GAP 11.2 (8-16); CARBON DIOXIDE 29.3 mmol/L (21-32); CHLORIDE 104 mmol/L (98-107); CREATININE 1.5 mg/dL (0.6-1.3); GLUCOSE 245 mg/dL (74-106); POTASSIUM 4.5 mmol/L (3.5-5.1); SODIUM SERUM 140 mmol/L (136-145); UREA NITROGEN, BLOOD 29 mg/dL (7-18)
[2017-04-02 06:57] LABS: MAGNESIUM 2.2 mg/dL (1.8-2.4); PHOSPHORUS 3.1 mg/dL (2.5-4.9)
[2017-04-02] MEDS: ALBUTEROL SULFATE/IPRATROPIU 3 ML SOL IH SCH ×3 (07:24→19:29)
[2017-04-02 07:27] LABS: LYMPHOCYTES % (MANUAL) 4 % (20-46); MONOCYTES % (MANUAL) 2 % (5-12)
--- NOTE | 2017-04-02 07:28 | NUR ---
RECEIVED REPORT FROM BLOCKING MACHINE OPERATOR SECOND NURSE, PT IS A/OX4, AMBULATES WITH ASSIST, PT USES BEDSIDE COMMODE, PT HAS DRY SCABS TROUGH OUT BILATERAL UPPER AND LOWER EXTREMITIES, IV IS ON THE RIGHT HAND, PATENT, INTACT, FLUSHING WELL, PT IS ON O2 2L NC, NO S/S OF RESPIRATORY DISTRESS OR DISCOMFORT NOTED, DISCUSSED PLAN OF CARE WITH PT, PT VERBALIZED UNDERSTANDING, SAFETY/FALL PRECAUTIONS ARE IN PLACE, CALL LIGHT IS WITHIN REACH, WILL CONTINUE TO MONITOR.
[2017-04-02 08:00] VITALS: BP 131/61
[2017-04-02] MEDS: DOCUSATE SODIUM 100 MG GELCAP PO SCH ×2 (08:13→20:25)
[2017-04-02] MEDS: ASCORBIC ACID 500 MG TAB PO SCH (08:13)
[2017-04-02] MEDS: FERROUS SULFATE 325 MG TABEC PO SCH (08:13)
[2017-04-02] MEDS: BENAZEPRIL 20 MG TAB PO SCH (08:14)
[2017-04-02] MEDS: CYCLOBENZAPRINE 10 MG TAB PO SCH ×3 (08:14→16:59)
[2017-04-02] MEDS: LACTOBACILLUS RHAMNOSUS GG 1 EACH CAP PO SCH (08:14)
[2017-04-02] MEDS: PANTOPRAZOLE 40 MG TABEC PO SCH (08:14)
[2017-04-02] MEDS: ECOTRIN 81 MG TABEC PO SCH (08:15)
[2017-04-02] MEDS: DILTIAZEM 120 MG CAPER PO SCH (08:15)
--- NOTE | 2017-04-02 08:32 | NUR ---
DUE MEDICATIONS GIVEN, PT TOLERATED WELL. PATIENT DID REFUSE THE SEROQUEL THIS MORNING, WILL ONLY TAKE AT NIGHT.
[2017-04-02] MEDS: QUEtiapine FUMARATE 100 MG TAB PO SCH ×2 (08:33→20:21)
[2017-04-02] MEDS: CLINICAL MONITORING MC SCH (09:30)
[2017-04-02] MEDS: methylPREDNISolone SS 40 MG/ML VIAL IVP SCH ×3 (09:30→20:30)
[2017-04-02] MEDS: NACL 0.9% 1,000 ML IV SCH (10:20)
--- NOTE | 2017-04-02 10:45 | NUR ---
NEW IV ATTEMPTED TO BE STARTED BY ER BUT WAS UNSUCCESSFUL.
--- NOTE | 2017-04-02 11:30 | NUR ---
NEW IV STARTED ON THE LEFT FOREARM 20G BY LONNIE FROM ER. PT TOLERATED WELL.
[2017-04-02 12:00] VITALS: BP 146/65
--- NOTE | 2017-04-02 13:00 | NUR ---
PT IS RESTING IN BED WATCHING TV, CALL LIGHT WITHIN REACH.
--- NOTE | 2017-04-02 14:42 | NUR ---
04/02/17 RD INITIAL ASSESSMENT COMPLETED PLEASE REFER TO NUTRITION ASSESSMENT UNDER CARE ACTIVITY FOR ESTIMATED NUTRITIONAL NEEDS. 1. CONTINUE CCHO 60 GM, MECHANICAL SOFT DIET TOLERATED PER MD 2. RD TO PROVIDE PT WITH DM DIET EDUCATION 3. RD TO FOLLOW-UP 3-5 DAYS, MODERATE RISK NICHOLE DEWITT RD
--- NOTE | 2017-04-02 15:00 | NUR ---
PATIENT REPOSITIONED FOR COMFORT, ALL NEEDS ARE MET AT THIS TIME. CALL LIGHT IS WITHIN REACH.
[2017-04-02 16:00] VITALS: BP 113/48
--- NOTE | 2017-04-02 17:33 | NUR ---
PT SITTING AT THIS SIDE OF THE BED, WATCHING TV, CALL LIGHT IS WITHIN REACH.
--- NOTE | 2017-04-02 19:15 | NUR ---
ENDORSED PT TO ELECTRICAL DESIGN TECHNICIAN NURSE FOR CONTINUITY OF CARE, PT STABLE AT THIS TIME.
--- NOTE | 2017-04-02 19:16 | NUR ---
RECEIVED HANDOFF REPORT FROM AM RN. PATIENT A&OX4. PATIENT STATES PAIN WILL MEDICATE ORDERED. IV SITE PATENT AND INTACT. ON 2L O2 VIA NASAL CANNULA. COMMODE AT BEDSIDE. PATIENT DENIES SOB. NO SIGNS OR SYMPTOMS OF ACUTE DISTRESS NOTED. CALL LIGHT WITHIN REACH. WILL CONTINUE TO MONITOR.
[2017-04-02 20:00] VITALS: BP 131/49
[2017-04-02] MEDS: ZOLPIDEM 10 MG TAB PO SCH (20:20)
[2017-04-02] MEDS ORDERED: AZITHROMYCIN IV SCH (21:00)
[2017-04-02] MEDS ORDERED: NACL 0.9% IV SCH (21:00)
[2017-04-03] VITALS: BP 144/67
[2017-04-03] MEDS: MORPHINE SULFATE 2 MG/ML SYR IVP PRN ×3 (01:21→11:13)
[2017-04-03] MEDS: NACL 0.9% 1,000 ML IV SCH (02:40)
[2017-04-03] MEDS: HYDROcodone/APAP 7.5/325 MG 1 TAB PO PRN (03:05)
[2017-04-03 04:00] VITALS: BP 149/54
[2017-04-03 04:25] LABS: APPEARANCE,URINE CLEAR (CLEAR); BILIRUBIN,URINE NEGATIVE (NEGATIVE); BLOOD, URINE 1+ (NEGATIVE); COLOR,URINE YELLOW (YELLOW); LEUKOCYTE ESTERASE ,URINE NEGATIVE (NEGATIVE); NITRITE, URINE NEGATIVE (NEGATIVE); UGLUCOSE 2+ (NEGATIVE)
[2017-04-03 04:38] LABS: RBC,URINE 11-20 (MOD) /HPF (0-5); WBC,URINE 0-5 (RARE) /HPF (0-5)
[2017-04-03 04:39] LABS: YEAST,URINE Few /HPF (None Seen)
[2017-04-03] MEDS: oxyCODONE 40 MG TABER PO SCH ×2 (05:41→13:05)
[2017-04-03] MEDS: cloNIDine 0.1 MG TAB PO SCH (05:44)
[2017-04-03] MEDS: glipiZIDE 5 MG TAB PO SCH (05:45)
[2017-04-03] MEDS: INSULIN LISPRO SLIDING SCALE 100 UNITS/ML VIAL SUBQ PRN ×2 (06:41→13:01)
[2017-04-03] MEDS: ALBUTEROL SULFATE/IPRATROPIU 3 ML SOL IH SCH (07:00)
[2017-04-03] MEDS: BLOOD GLUCOSE MONITORING 1 DEV DEV FS SCH ×2 (07:30→11:30)
--- NOTE | 2017-04-03 07:32 | NUR ---
PT REFUSED BREATHING TX AT THIS TIME PT STATES SHE WANTS TO EAT, PT NOT SOB AND NOT IN RESPIRATORY DISTRESS. PT IS SITTING UP BEDSIDE EATING WITHOUT ANY DISTRESS.
[2017-04-03 07:37] LABS: BASOPHILS # (AUTO) 0.3 K/uL (0.00-0.22); BASOPHILS % (AUTO) 1.5 % (0.0-2.0); EOSINOPHILS # (AUTO) 0.2 K/uL (0-0.4); HEMATOCRIT 30.6 % (36-48); HEMOGLOBIN 10.3 g/dL (12.0-16.0); LYMPHOCYTES # (AUTO) 0.6 K/uL (2.5-16.5); LYMPHOCYTES % (AUTO) 3.7 % (20.5-51.1); MEAN CORPUSCULAR HEMOGLOBIN 30 pg (27-31); MEAN CORPUSCULAR HGB CONC 34 g/dL (33-37); MEAN CORPUSCULAR VOLUME 90 fL (80-94); MONOCYTES # (AUTO) 0.1 K/uL (0.8-1.0); MONOCYTES % (AUTO) 0.3 % (1.7-9.3); NEUTROPHILS # (AUTO) 15.5 K/uL (1.8-7.7); NEUTROPHILS % (AUTO) 93.5 % (42.2-75.2); PLATELET COUNT (AUTO) 265 K/uL (140-450); RED CELL DISTRIBUTION WIDTH 14.9 % (11.6-13.7); WHITE BLOOD COUNT (AUTO) 16.7 K/uL (4.8-10.8)
--- NOTE | 2017-04-03 07:42 | NUR ---
ENDORSED PLAN OF CARE TO AM RN. PATIENT IN STABLE CONDITION. NO SIGNS OR SYMPTOMS OF ACUTE DISTRESS NOTED. SAFETY MEASURES ENSURED
--- NOTE | 2017-04-03 07:45 | NUR ---
ENDORSEMENT RECEIVED FROM MINE ADMINISTRATOR SUPERVISOR NURSE. PATIENT'S RESPIRATION EVEN, UNLABOR. SKIN DRY AND WARM. CALL LIGHT WITHIN REACH. WILL CONTINUE TO MONITOR
[2017-04-03 08:00] VITALS: BP 142/76
--- NOTE | 2017-04-03 08:00 | NUR ---
PATIENT AWAKE, ALERT, ORIENTED X4. PUPILS EQUAL REACTIVE TO LIGHT. RESPIRATION EVEN, LUNGS SOUND CLEAR THROUGHOUT. CARDIAC WITH S1,S2 PRESENT. BOWEL SOUNDS ACTIVE 4 QUADRANTS. SKIN DRY AND WARM. DENIED SOB AT THIS TIME. IV 24G LEFT FOREARM INFUSING NS @ 50ML/HR, PATENT AND INTACT. COMPLAINED OF BACK PAIN 12/11, REQUESTING MORPHINE, WILL MEDICATE PER ORDER. CALL LIGHT WITHIN REACH. WILL CONTINUE TO MONITOR
[2017-04-03 08:15] LABS: CARBON DIOXIDE 26.3 mmol/L (21-32); CHLORIDE 104 mmol/L (98-107); CREATININE 1.4 mg/dL (0.6-1.3); GLUCOSE 249 mg/dL (74-106); POTASSIUM 4.3 mmol/L (3.5-5.1); SODIUM SERUM 137 mmol/L (136-145); UREA NITROGEN, BLOOD 32 mg/dL (7-18)
[2017-04-03 08:19] LABS: MAGNESIUM 2.2 mg/dL (1.8-2.4); PHOSPHORUS 3.4 mg/dL (2.5-4.9)
[2017-04-03] MEDS: DILTIAZEM 120 MG CAPER PO SCH (08:30)
[2017-04-03] MEDS: LACTOBACILLUS RHAMNOSUS GG 1 EACH CAP PO SCH (08:30)
[2017-04-03] MEDS: QUEtiapine FUMARATE 100 MG TAB PO SCH (08:30)
[2017-04-03] MEDS: ASCORBIC ACID 500 MG TAB PO SCH (08:31)
[2017-04-03] MEDS: FERROUS SULFATE 325 MG TABEC PO SCH (08:31)
[2017-04-03] MEDS: BENAZEPRIL 20 MG TAB PO SCH (08:31)
[2017-04-03] MEDS: PANTOPRAZOLE 40 MG TABEC PO SCH (08:31)
[2017-04-03] MEDS: DOCUSATE SODIUM 100 MG GELCAP PO SCH (08:32)
[2017-04-03] MEDS: CYCLOBENZAPRINE 10 MG TAB PO SCH ×2 (08:32→13:05)
[2017-04-03] MEDS: ECOTRIN 81 MG TABEC PO SCH (08:32)
[2017-04-03] MEDS: CLINICAL MONITORING MC SCH (09:00)
--- NOTE | 2017-04-03 10:00 | NUR ---
PATIENT IS SLEEPING COMFORTABLY. RESPIRATION EVEN, UNLABOR. NO DISTRESS NOTED AT THIS TIME. CALL LIGHT WITHIN REACH. WILL CONTINUE TO MONITOR
[2017-04-03] MEDS ORDERED: METH4TAB1 PO (10:41)
[2017-04-03] MEDS ORDERED: QUET100T PO (10:42)
[2017-04-03] MEDS ORDERED: GLIP5TAB4 PO (10:42)
[2017-04-03] MEDS ORDERED: AZIT250T3 PO (11:01)
[2017-04-03] MEDS ORDERED: AMOX1TAB8 PO (11:01)
[2017-04-03] MEDS ORDERED: LACT10CA PO (11:01)
[2017-04-03] MEDS ORDERED: BLOO1KIT MC (11:12)
--- NOTE | 2017-04-03 11:21 | NUR ---
ORDER FOR HOME HEALTH. I CALLED [facility], , AND SPOKE WITH MARTA. SHE SAID THEY WILL RENEW THE HOME HEALTH . I ALSO TOLD HER THAT THE PATIENT HAS A CONCERN ABOUT HER ACCUCHECK MACHINE. I FAXED INFORMATION TO [facility] AT [phone], INCLUDING THE ORDER.
[2017-04-03 12:00] VITALS: BP 133/55
[2017-04-03] MEDS ORDERED: FLUCONAZOLE 100 MG TAB PO SCH (13:30)
--- NOTE | 2017-04-03 13:30 | NUR ---
DISCHARGE INSTRUCTION WAS GIVEN TO PATIENT. PATIENT VERBALIZED UNDERSTANDING. IV WAS REMOVED WITH CATHETER INTACT. MEDS WERE GIVEN PER ORDER. FAMILY AT BEDSIDE. DENIED SOB, N/V, PAIN AT THIS TIME. PATIENT IS CONNECTED TO O2 THAT WAS BROUGHT IN BY FAMILY. ESCORTED OUT WITH RADHA AND RN.
== END 2017-04-03 13:30 | disposition home health service (06) | DRG 637 ==
LOC: MED 16:08 → MTU 18:30
PROVIDERS: ADMIT Family Medicine; ATTEND Family Medicine
DX: E11.65 Type 2 diabetes mellitus with hyperglycemia (principal); N17.0 Acute kidney failure with tubular necrosis; J96.21 Acute and chronic respiratory failure with hypoxia; J44.1 Chronic obstructive pulmonary disease with (acute) exacerbation; D68.59 Other primary thrombophilia; E44.1 Mild protein-calorie malnutrition; Z99.81 Dependence on supplemental oxygen; E11.22 Type 2 diabetes mellitus with diabetic chronic kidney disease; E11.51 Type 2 diabetes mellitus with diabetic peripheral angiopathy without gangrene; F31.9 Bipolar disorder, unspecified; F41.9 Anxiety disorder, unspecified; N18.9 Chronic kidney disease, unspecified; I12.9 Hypertensive chronic kidney disease with stage 1 through stage 4 chronic kidney disease, or unspecified chronic kidney disease; E78.2 Mixed hyperlipidemia; G89.29 Other chronic pain; M54.9 Dorsalgia, unspecified; E66.9 Obesity, unspecified; D64.9 Anemia, unspecified; D72.828 Other elevated white blood cell count; T38.0X5A Adverse effect of glucocorticoids and synthetic analogues, initial encounter; B37.9 Candidiasis, unspecified; Z88.2 Allergy status to sulfonamides; Z79.82 Long term (current) use of aspirin; Z79.84 Long term (current) use of oral hypoglycemic drugs; Z79.891 Long term (current) use of opiate analgesic; Z79.899 Other long term (current) drug therapy; Z98.1 Arthrodesis status; Z90.49 Acquired absence of other specified parts of digestive tract; Z87.891 Personal history of nicotine dependence; Z68.37 Body mass index [BMI] 37.0-37.9, adult; Z91.19 Patient's noncompliance with other medical treatment and regimen; Z91.81 History of falling
CPT/HCPCS: 36415; 36600; 71010; 73560; 80048; 80053; 81001; 82140; 82150; 82803; 82948; 83605; 83690; 83735; 83880; 84100; 84439; 84443; 84484; 85025; 85610; 85730; 87040; 87081; 87086; 93005; 94640; 96365; 96375; 96376; 99285; J0456; J0696; J1170; J1815; J1885; J2270; J2920; J2930; J3475; J7030; J7060; J7620; Q0092

== ENCOUNTER 2017-09-12 01:19 | Emergency (ER) | payer OTHER ==
[~2017-09-12] VITALS: Ht 167.6 cm; Wt 90.7 kg
[~2017-09-12 01:19] MED LIST changes: +AMOX1TAB8 PO; +AZIT250T3 PO; +BLOO1KIT MC; -CLIN300C2 PO; -GLIP5TAB13 PO; +GLIP5TAB4 PO; +LACT10CA PO; -LEVO750T2 PO; +METH4TAB1 PO; -PRED20TA5 PO; +QUET100T PO; -QUET200T PO; -SACC250C1 PO
[2017-09-12 01:20] VITALS: BP 145/71
--- NOTE | 2017-09-12 01:20 | NUR ---
PT MOLLY ALS. TAKEN TO BED 5
--- NOTE | 2017-09-12 01:34 | NUR ---
77Y/F PT. BIBA TO ED WITH C/O HEADACHE X 1 HRS. PT. TOOK NORCO X 2 HR WITH NO RELIEF. HX. HTN, DM, COPD ON O2 2LPM VIA NC. AAO X4, AMBULATE WITH ASSIST, CGS 15. PUPILS 2 MM BOTH REAGAN. REPIRATIONS ON O2LPM VIA NC, EVEN AND UNLABORED. BL LUNG CLEAR. SKIN WARM AND DRY. STATES PAIN 10/10. VSS, ER MADE AWARE OF PT. STATUS.
--- NOTE | 2017-09-12 01:48 | NUR ---
Dr. Matos evaluating patient at bedside.
[2017-09-12] MEDS ORDERED: MORPHINE SULFATE 4 MG/ML SYR IM ONE (01:55)
--- NOTE | 2017-09-12 02:03 | NUR ---
PT TAKEN TO CT
--- NOTE | 2017-09-12 02:23 | NUR ---
PT RETURN FROM CT
--- NOTE | 2017-09-12 02:30 | NUR ---
PT BACK FROM CT AAOX4
--- NOTE | 2017-09-12 02:36 | NUR ---
Patient appears to be resting comfortably in bed. Vital Signs within normal limits. Respirations even and unlabored.
[2017-09-12] MEDS ORDERED: NACL 0.9% 1,000 ML IV ONE (02:54)
[2017-09-12] MEDS ORDERED: PROCHLORPERAZINE 10 MG/2 ML VIAL IVP ONE (02:55)
[2017-09-12] MEDS ORDERED: diphenhydrAMINE 50 MG/ML VIAL IVP ONE (02:55)
--- NOTE | 2017-09-12 03:30 | NUR ---
Dr. Matos re-evaluating patient at bedside.
[2017-09-12] MEDS ORDERED: DIAZEPAM PFS 10 MG/2 ML SYR IVP ONE (03:35)
--- NOTE | 2017-09-12 03:45 | NUR ---
Patient appears to be resting comfortably in bed. Vital Signs within normal limits. Respirations even and unlabored.
[2017-09-12 05:58] VITALS: BP 147/63
--- NOTE | 2017-09-12 05:58 | NUR ---
Patient discharged with v/s stable. Written and verbal after care instructions given and explained. Patient alert, oriented and verbalized understanding of instructions. Wheel Chair Assisted with to car. All questions addressed prior to discharge. ID band removed. Patient advised to follow up with PMD. Rx of NORCO 5/325 MG, MOTRIN 800 MG given. Patient educated on indication of medication including possible reaction and side effects. Opportunity to ask questions provided and answered.
== END 2017-09-12 05:58 | disposition home or self-care (01) ==
LOC: MED 01:19
DX: R51 Headache (principal); R11.0 Nausea; Z88.2 Allergy status to sulfonamides; J44.9 Chronic obstructive pulmonary disease, unspecified; E11.9 Type 2 diabetes mellitus without complications; I10 Essential (primary) hypertension
CPT/HCPCS: 70450; 81002; 96361; 96372; 96374; 96375; 99284; J0780; J1200; J2270; J3360; J7030

== ENCOUNTER 2020-08-15 15:35 | Emergency (ER) | payer OTHER ==
[~2020-08-15] VITALS: Ht 167.6 cm; Wt 94.3 kg
[~2020-08-15 15:35] MED LIST changes: -ASPI-1173 PO; +ASPI-1856 PO; +CLON0.1T16 PO; -CLON0.1T42 PO; +GLIP5TAB14 PO; -GLIP5TAB4 PO
[2020-08-15 15:44] VITALS: BP 132/67
--- NOTE | 2020-08-15 15:52 | NUR ---
SON : SAMANTHA [phone]
--- NOTE | 2020-08-15 15:55 | NUR ---
PT TAKEN TO BED 4 VIA W/C.
--- NOTE | 2020-08-15 15:56 | NUR ---
80 Y/O FEMALE BIB CAREGIVER C/O BILATERAL LOWER EXTREMITY RADIATING TO BOTH THIGHS & NON-PITTING TRACE EDEMA TO BLE X 3 DAYS. PT STATES SHE IS VERY ITCHY AND HAS PLACED BAND-AIDS OVER ABRASIONS AND SCABS THROUGHOUT. BILATERAL LEGS HAVE MULTIPLE NON-RAISED RED BUMPS. PT DENIES FEVR/CHILLS, DENIES N/V. PMH: DM, PARTIAL HYSTERECTOMY, COPD, HTN ALLERGIES: SULFA
--- NOTE | 2020-08-15 16:00 | NUR ---
Patient being evaluated by Dr. Maharaj at bedside.
--- NOTE | 2020-08-15 16:01 | NUR ---
Dr. Maharaj at pt bedside for further evaluation.
[2020-08-15] MEDS ORDERED: diphenhydrAMINE 50 MG/ML VIAL IM ONE (16:05)
[2020-08-15] MEDS ORDERED: HYDROXYZINE HYDROCHLORIDE 25 MG TAB PO STA (16:05)
[2020-08-15] MEDS ORDERED: ACETAMINOPHEN EXTRA STRENGTH 500 MG TAB PO ONE (16:15)
--- NOTE | 2020-08-15 16:18 | NUR ---
gas plant technician at pt bedside.
[2020-08-15] MEDS ORDERED: HYD1C TP (16:31)
[2020-08-15] MEDS ORDERED: CEPH500C16 PO (16:31)
[2020-08-15 16:32] LABS: BASOPHILS % (AUTO) 0.6 % (0.0-2.0); EOSINOPHILS # (AUTO) 0.1 K/uL (0-0.4); EOSINOPHILS % (AUTO) 1.3 % (0.0-4.0); LYMPHOCYTES # (AUTO) 1.8 K/uL (2.5-16.5); LYMPHOCYTES % (AUTO) 22.1 % (20.5-51.1); MEAN CORPUSCULAR HEMOGLOBIN 31 pg (27-31); MEAN CORPUSCULAR HGB CONC 33 g/dL (33-37); MEAN CORPUSCULAR VOLUME 95.5 fL (80-94); MONOCYTES # (AUTO) 0.6 K/uL (0.8-1.0); MONOCYTES % (AUTO) 7.7 % (1.7-9.3); NEUTROPHILS # (AUTO) 5.5 K/uL (1.8-7.7); NEUTROPHILS % (AUTO) 68.3 % (42.2-75.2); PLATELET COUNT (AUTO) 266 K/uL (140-450); RED BLOOD CELL COUNT(AUTO) 4.19 MIL/uL (4.20-5.40); RED CELL DISTRIBUTION WIDTH 14.6 % (11.6-13.7)
[2020-08-15] MEDS ORDERED: HYDROcodone/APAP 5/325 MG 1 TAB TAB ONE (16:32)
[2020-08-15] MEDS ORDERED: HYDR-637 PO (16:33)
--- NOTE | 2020-08-15 16:37 | NUR ---
US tech at pt bedside.
[2020-08-15 17:02] LABS: ANION GAP 10.8 (8-16); CARBON DIOXIDE 30.9 mmol/L (21-32); CHLORIDE 102 mmol/L (98-107); GLUCOSE 113 mg/dL (74-106); POTASSIUM 4.7 mmol/L (3.5-5.1); SODIUM SERUM 139 mmol/L (136-145); UREA NITROGEN, BLOOD 30 mg/dL (7-18)
[2020-08-15] MEDS ORDERED: HYDROCORTISONE 1% CRM 30 GM TUBE TP SCH (17:05)
[2020-08-15] MEDS ORDERED: HYDROcodone/APAP 5/325 MG 1 TAB TAB PO ONE (17:05)
[2020-08-15 17:08] LABS: ALBUMIN 3.6 g/dL (3.4-5.0); ASPARTATE AMINOTRANSFERASE 19 U/L (15-37); TOTAL BILIRUBIN 0.6 mg/dL (0.0-1.0)
[2020-08-15] MEDS ORDERED: DIPH25CA94 PO (17:20)
[2020-08-15 17:25] LABS: PROTHROMBIN TIME 9.9 secs (10.8-13.4)
[2020-08-15 17:41] VITALS: BP 132/67
--- NOTE | 2020-08-15 17:41 | NUR ---
Patient discharged with v/s stable. Written and verbal after care instructions given and explained. Patient alert, oriented and verbalized understanding of instructions. Wheel Chair Assisted with to car. All questions addressed prior to discharge. ID band removed. Patient advised to follow up with PMD. Rx of keflex 500mg qid daily, hydrocortisone 1gm topical daily, and hydroxyzine 25mg po bid given. Patient educated on indication of medication including possible reaction and side effects. Opportunity to ask questions provided and answered.
== END 2020-08-15 17:41 | disposition home or self-care (01) ==
LOC: MED 15:35
DX: L30.9 Dermatitis, unspecified (principal); R60.0 Localized edema; J44.9 Chronic obstructive pulmonary disease, unspecified; E11.9 Type 2 diabetes mellitus without complications; I10 Essential (primary) hypertension; L08.9 Local infection of the skin and subcutaneous tissue, unspecified; Z88.2 Allergy status to sulfonamides; Z79.899 Other long term (current) drug therapy; Z79.84 Long term (current) use of oral hypoglycemic drugs
CPT/HCPCS: 36415; 80053; 85025; 85610; 85730; 93970; 96372; 99284; J1200

== ENCOUNTER 2020-11-15 20:29 | Emergency (ER) | payer OTHER ==
[~2020-11-15] VITALS: Ht 167.6 cm; Wt 93.0 kg
[~2020-11-15 20:29] MED LIST changes: +ALBU-118 INH; -ALBU-136 INH; +CEPH500C16 PO; +DIPH25CA94 PO; +HYD1C TP; +HYDR-637 PO
--- NOTE | 2020-11-15 20:29 | NUR ---
PT MOLLY BLS. TAKEN TO BED 7
[2020-11-15 20:33] VITALS: BP 145/58
--- NOTE | 2020-11-15 20:33 | NUR ---
BIBA FROM HOME C/OHEADACHE STARTED 1.5HRS AGO. 10/10 INTERMITTENT PAIN ON THE TEMPLES. HAS NAUSEA [facility] GIVEN 4MG ZOFRAN. TOOK OXYCODONE AT 17:30 TODAY. PATIENT ON 3.5L O2 NORMALLY. PATIENT DENIES LOSS OF LOC, DIZZINESS, BLURRY VISION, AND RINGING IN THE EARS. AAOX4. VSS. PMH: ASTHMA, DEPRESSION, HTN, DM ALLERGIES: SULFA, LATEX
[2020-11-15] MEDS ORDERED: ACETAMINOPHEN 325 MG TAB PO ONE (22:05)
[2020-11-15] MEDS ORDERED: KETOROLAC 15 MG/ML VIAL IVP ONE (22:05)
[2020-11-15] MEDS ORDERED: diphenhydrAMINE 50 MG/ML VIAL IVP ONE (22:05)
[2020-11-15] MEDS ORDERED: PROCHLORPERAZINE 10 MG/2 ML VIAL IVP ONE (22:05)
--- NOTE | 2020-11-15 22:08 | NUR ---
Dr. Nunez examining patient.
[2020-11-15 22:48] LABS: BASOPHILS # (AUTO) 0.1 K/uL (0.00-0.22); BASOPHILS % (AUTO) 1.9 % (0.0-2.0); EOSINOPHILS # (AUTO) 0.2 K/uL (0-0.4); EOSINOPHILS % (AUTO) 2.5 % (0.0-4.0); HEMATOCRIT 39.1 % (36-48); HEMOGLOBIN 12.7 g/dL (12.0-16.0); LYMPHOCYTES # (AUTO) 2.3 K/uL (2.5-16.5); LYMPHOCYTES % (AUTO) 29.9 % (20.5-51.1); MEAN CORPUSCULAR HEMOGLOBIN 30 pg (27-31); MEAN CORPUSCULAR HGB CONC 32 g/dL (33-37); MEAN CORPUSCULAR VOLUME 91.8 fL (80-94); MONOCYTES # (AUTO) 0.5 K/uL (0.8-1.0); MONOCYTES % (AUTO) 6.7 % (1.7-9.3); NEUTROPHILS # (AUTO) 4.5 K/uL (1.8-7.7); PLATELET COUNT (AUTO) 241 K/uL (140-450); RED BLOOD CELL COUNT(AUTO) 4.26 MIL/uL (4.20-5.40); RED CELL DISTRIBUTION WIDTH 15.3 % (11.6-13.7); WHITE BLOOD COUNT (AUTO) 7.6 K/uL (4.8-10.8)
[2020-11-15 23:13] LABS: ALBUMIN 3.7 g/dL (3.4-5.0); ANION GAP 9.3 (8-16); ASPARTATE AMINOTRANSFERASE 18 U/L (15-37); CHLORIDE 105 mmol/L (98-107); CREATININE 1.5 mg/dL (0.6-1.3); GLUCOSE 155 mg/dL (74-106); POTASSIUM 4.3 mmol/L (3.5-5.1); SODIUM SERUM 140 mmol/L (136-145); TOTAL BILIRUBIN 0.2 mg/dL (0.0-1.0); UREA NITROGEN, BLOOD 18 mg/dL (7-18)
--- NOTE | 2020-11-15 23:49 | NUR ---
Patient to CT via [facility]
--- NOTE | 2020-11-16 00:10 | NUR ---
PT RETURN FROM CT
--- NOTE | 2020-11-16 01:26 | NUR ---
Patient appears to be resting comfortably in bed. Vital Signs within normal limits. Respirations even and unlabored. Safety measures in place. Will continue to monitor patient
--- NOTE | 2020-11-16 03:18 | NUR ---
IV removed, catheter intact and site benign. Applied folded 4x4 gauze and tape to stop bleeding.
[2020-11-16 03:20] VITALS: BP 136/68
--- NOTE | 2020-11-16 03:20 | NUR ---
Patient discharged with v/s stable. Written and verbal after care instructions given and explained. Patient verbalized understanding. Wheel Chair Assisted with to taxi car. ID band removed. All questions addressed prior to discharge. Advised to follow up with PMD.
== END 2020-11-16 02:14 | disposition home or self-care (01) ==
LOC: MED 20:29
DX: G43.909 Migraine, unspecified, not intractable, without status migrainosus (principal)
CPT/HCPCS: 36415; 70450; 70496; 80053; 85025; 96374; 96375; 99285; J0780; J1200; J1885; Q9967